=== PATIENT | male | born 1980 ===

== ENCOUNTER 2016-07-22 20:00 | Emergency (ER) | payer MEDICAID, OTHER ==
[2016-07-22 20:01] VITALS: BMI 25.7
[2016-07-22] MEDS ORDERED: Sodium Chloride 0.9% 1,000 ML IV ONE (20:52)
[2016-07-22] MEDS ORDERED: Albuterol-Ipratrop 3 mg / 0.5 (3 ml) UD IH STA (20:53)
[2016-07-22] MEDS ORDERED: Sodium Chloride 0.9% 1,000 ML ONE (21:03)
[2016-07-22 21:32] LABS: BASO % 0.6 % (0.0-2.0); EOS # 0.1 K/uL (0.0-0.7); EOS % 2.2 % (0.0-4.0); HEMATOCRIT 42.2 % (35.0-51.0); LYMPH # 2.2 K/uL (1.0-4.3); LYMPH % 37.5 % (20.0-40.0); MEAN CORPUSCULAR HEMOGLOBIN 30.6 pg (27.0-31.0); MEAN CORPUSCULAR HGB CONC 33.3 g/dL (33.0-37.0); MEAN PLATELET VOLUME 7.2 fL (7.2-11.7); MONO # 0.7 K/uL (0.0-0.8); NRBC % 0.1 % (0.0-2.0); RED CELL DISTRIBUTION WIDTH 13.6 % (11.5-14.5); WHITE BLOOD COUNT 5.9 K/uL (4.8-10.8)
[2016-07-22 21:38] LABS: CHLORIDE 92 mmol/L (98-107); SODIUM 140 mmol/L (132-148)
[2016-07-22 21:39] LABS: POTASSIUM 3.3 mmol/L (3.6-5.2)
[2016-07-22 21:41] LABS: ALB/GLOB RATIO 1.3 (1.0-2.1); ALKALINE PHOSPHATASE 77 U/L (38-126); ALT/SGPT 23 U/L (21-72); AST/SGOT 36 U/L (17-59); BILIRUBIN,TOTAL 0.3 mg/dL (0.2-1.3); BLOOD UREA NITROGEN 5 mg/dL (9-20); CALCIUM 9.1 mg/dl (8.6-10.4); CARBON DIOXIDE 28 mmol/L (22-30); GFR AFRICAN-AMERICAN > 60; GLUCOSE,RANDOM 89 mg/dL (75-110); TOTAL PROTEIN 8.1 g/dL (6.3-8.3)
[2016-07-22 21:42] LABS: ALCOHOL SERUM 264 mg/dl (0-10)
[2016-07-22] MEDS ORDERED: Albuterol-Ipratrop 3 mg / 0.5 (3 ml) UD ONE (21:51)
[2016-07-22 22:39] VITALS: RESP 16; TEMP 97.7
[2016-07-22] MEDS ORDERED: Potassium Chloride 20 mEq ER Tab PO STA (23:57)
--- NOTE | 2016-07-22 23:58 | C.PDOC ---
Time Seen by Provider: 07/22/16 20:45 Chief Complaint (Nursing): Shortness Of Breath Past Medical History Vital Signs: Last Vital Signs Temp 97.7 F 07/22/16 22:39 Pulse 86 07/22/16 22:39 Resp 16 07/22/16 22:39 BP 107/68 07/22/16 22:39 Pulse Ox 94 L 07/22/16 22:39 - Medical History PMH: Anxiety, Depression, Seizures (ETOH related) Denies: Diabetes, Hepatitis, HIV, HTN, Pericarditis (atrial septal defect), Chronic Kidney Disease, Sexually Transmitted Disease Surgical History: CABG, Pacemaker - [facility] Procedures ALCOHOL DETOXIFICATION (06/14/14) ALCOHOLISM COUNSELLING (07/22/13) DETOXIFICATION SERVICES FOR SUBSTANCE ABUSE TREATMENT (06/19/16) INDIVIDUAL PSYCHOTHERAPY, SUPPORTIVE (06/19/16) INJECT/INFUSE NEC (06/04/14) INTRODUCTION OF SERUM/TOX/VACCINE INTO MUSCLE, PERC APPROACH (10/20/15) OTHER ENDOSCOPY OF SM INTEST (06/29/13) PSYCHIA INTERV/EVAL NEC (08/06/13) VACCINATION NEC (07/22/13) Family History: States: Unknown Family Hx - Social History Hx Tobacco Use: Yes Hx Alcohol Use: Yes (VODKA) Hx Substance Use: Yes - Immunization History Hx Tetanus Toxoid Vaccination: No Hx Influenza Vaccination: Yes Hx Pneumococcal Vaccination: Yes ED Course And Treatment - Laboratory Results Result Diagrams: 07/22/16 21:26 07/22/16 21:26 O2 Sat by Pulse Oximetry: 94
--- NOTE | 2016-07-23 00:01 | C.PDOC ---
Time Seen by Provider: 07/22/16 20:45 Chief Complaint (Nursing): Cough, Cold, Congestion History Per: Patient Onset/Duration Of Symptoms: Days (few) Current Symptoms Are (Timing): Still Present Associated Symptoms: Cough, Sputum Severity: Moderate Additional History Per: Prior Records Past Medical History Reviewed: Historical Data, Nursing Documentation, Vital Signs Vital Signs: Last Vital Signs Temp 97.7 F 07/22/16 22:39 Pulse 86 07/22/16 22:39 Resp 16 07/22/16 22:39 BP 107/68 07/22/16 22:39 Pulse Ox 94 L 07/22/16 22:39 - Medical History PMH: Anxiety, Depression, Seizures (ETOH related) Other Surgeries: Repair of atrial septal defect - [facility] Procedures ALCOHOL DETOXIFICATION (06/14/14) ALCOHOLISM COUNSELLING (07/22/13) DETOXIFICATION SERVICES FOR SUBSTANCE ABUSE TREATMENT (06/19/16) INDIVIDUAL PSYCHOTHERAPY, SUPPORTIVE (06/19/16) INJECT/INFUSE NEC (06/04/14) INTRODUCTION OF SERUM/TOX/VACCINE INTO MUSCLE, PERC APPROACH (10/20/15) OTHER ENDOSCOPY OF SM INTEST (06/29/13) PSYCHIA INTERV/EVAL NEC (08/06/13) VACCINATION NEC (07/22/13) Family History: States: Unknown Family Hx - Social History Hx Tobacco Use: Yes Hx Alcohol Use: Yes (VODKA) Hx Substance Use: Yes (IVDU) - Immunization History Hx Tetanus Toxoid Vaccination: No Hx Influenza Vaccination: Yes Hx Pneumococcal Vaccination: Yes Review Of Systems Except As Marked, All Systems Reviewed And Found Negative. Constitutional: Negative for: Fever Cardiovascular: Negative for: Chest Pain Respiratory: Positive for: Cough, Sputum. Negative for: Hemoptysis Gastrointestinal: Negative for: Abdominal Pain Genitourinary: Negative for: Dysuria Musculoskeletal: Negative for: Neck Pain, Back Pain Skin: Positive for: Lesions Neurological: Negative for: Weakness, Numbness, Seizures, Altered Mental Status Physical Exam - Physical Exam Appears: Non-toxic, No Acute Distress Skin: Warm, Dry Head: Atraumatic, Normacephalic Eye(s): bilateral: PERRL, EOMI Neck: Normal ROM, Supple Cardiovascular: Rhythm Regular Respiratory: No Accessory Muscle Use, Rhonchi Gastrointestinal/Abdominal: Soft, No Tenderness Back: No CVA Tenderness Extremity: Normal ROM, No Pedal Edema, No Calf Tenderness, Capillary Refill (wnl ), Other (track hopkins on arms with some small areas of erythema, no fluctuance. ) Pulses: Left Radial: Normal, Right Radial: Normal Neurological/Psych: Oriented x3, Normal Motor, Normal Sensation ED Course And Treatment - Laboratory Results Result Diagrams: 07/22/16 21:26 07/22/16 21:26 O2 Sat by Pulse Oximetry: 95 Pulse Ox Interpretation: Normal - Radiology CXR: Interpreted by Me, Viewed By Me CXR Interpretation: Yes: No Acute Disease Progress Note: Lungs clear after 1 Duoneb. Reassessment Condition: Improved Progress - Interventions Interventions:: Observation, Intravenous fluid - Medications Administered Inhaled nebulized: Anticholinergic, Beta-2 agonist - Data Reviewed Data Reviewed: Lab, Diagnostic imaging, Old records - Patient Status Patient status: Mostly improved - Continuity of Care Discussed patient case with:: Patient, ED Nurse - Patient Plan Patient Plan: Discharge, F/U with PCP Disposition Counseled Patient/Family Regarding: Studies Performed, Diagnosis, Need For Followup, Rx Given, Smoking Cessation - Disposition Disposition: HOME/ ROUTINE Disposition Time: 00:03 Condition: IMPROVED Additional Instructions: Stop smoking, drinking alcohol, and using illicit drugs. Follow up with your doctor within 2 days. Return to the ER if you develop fever, shortness of breath , worsening of symptoms or if you have any other concerns. Prescriptions: Doxycycline Hyclate 100 mg PO Q12 #14 tab Albuterol HFA [Ventolin HFA 90 mcg/actuation (8 g)] 2 puff IH Q4 PRN #1 unit PRN Reason: Wheezing Instructions: Acute Bronchitis (ED), Polysubstance Abuse (ED) - Clinical Impression Clinical Impression: Bronchitis, acute, Polysubstance abuse
[2016-07-23] MEDS ORDERED: Potassium Chloride 20 mEq ER Tab PO ONE (00:09)
[2016-07-23 00:32] VITALS: BP 110/75; PULSE 85; O2SAT 99
--- NOTE | 2016-07-23 08:30 | RAD ---
PROCEDURE: CHEST RADIOGRAPH, 1 VIEW HISTORY: SOB, cough, h/o ASD repair. IVDU. COMPARISON: 01/05/2016 FINDINGS: LUNGS: Mild venous congestion. PLEURA: No pneumothorax or pleural fluid seen. CARDIOVASCULAR: Normal. OSSEOUS STRUCTURES: No significant abnormalities. VISUALIZED UPPER ABDOMEN: Normal. OTHER FINDINGS: None. IMPRESSION: Mild venous congestion.
== END 2016-07-23 00:31 | disposition home or self-care (01) ==
LOC: C.ER 20:00
DX: J20.9 Acute bronchitis, unspecified (principal); F19.10 Other psychoactive substance abuse, uncomplicated; E87.6 Hypokalemia
CPT/HCPCS: 71010; 80053; 80320; 83735; 85025; 87040; 87804; 94640; 99284; J7040

== ENCOUNTER 2016-10-08 17:03 | Inpatient (IN) | payer OTHER ==
[2016-10-08 17:03] VITALS: BMI 25.7
--- NOTE | 2016-10-08 17:52 | C.PDOC ---
History Of Present Illness 36-year-old male, presents to the emergency department with complaints of foot cellulitis and abscesses to B/L feet. Patient discharged on 09/18 for right foot cellulitis and heroin abuse. Patient discharged on Clindamycin. States he didn' t fill it and was taking "sisters leftover unknown abx." Patient notes that he popped abscess on right foot, and has mild relief since. He is complaining of associated subjective fever and chills. Patient admits to shooting up in foot, but thinks he has not done it in two weeks. Last Heroin use was two days ago. Patient is also complaining of a non-productive cough with post-tussive vomiting. Patient is a smoker. No Hx of Asthma. Time Seen by Provider: 10/08/16 17:35 Chief Complaint (Nursing): Abnormal Skin Integrity History Per: Patient History/Exam Limitations: no limitations Onset/Duration Of Symptoms: Days Current Symptoms Are (Timing): Still Present Past Medical History Reviewed: Historical Data, Nursing Documentation, Vital Signs Vital Signs: Last Vital Signs Temp 98.2 F 10/08/16 17:12 Pulse 82 10/08/16 17:12 Resp 18 10/08/16 17:12 BP 105/68 10/08/16 17:12 Pulse Ox 100 10/08/16 18:44 - Medical History PMH: Anxiety, Bipolar Disorder, Depression, Seizures (ETOH related) Denies: HIV, HTN, Pericarditis (atrial septal defect), Chronic Kidney Disease , Sexually Transmitted Disease Surgical History: CABG - [facility] Procedures ALCOHOL DETOXIFICATION (06/14/14) ALCOHOLISM COUNSELLING (07/22/13) DETOXIFICATION SERVICES FOR SUBSTANCE ABUSE TREATMENT (06/19/16) INDIVIDUAL PSYCHOTHERAPY, SUPPORTIVE (06/19/16) INJECT/INFUSE NEC (06/04/14) INTRODUCTION OF SERUM/TOX/VACCINE INTO MUSCLE, PERC APPROACH (10/20/15) OTHER ENDOSCOPY OF SM INTEST (06/29/13) PSYCHIA INTERV/EVAL NEC (08/06/13) VACCINATION NEC (07/22/13) Family History: States: No Known Family Hx - Social History Hx Tobacco Use: Yes Hx Alcohol Use: Yes (VODKA) Hx Substance Use: Yes (IVDU) - Immunization History Hx Tetanus Toxoid Vaccination: No Hx Influenza Vaccination: Yes Hx Pneumococcal Vaccination: Yes Review Of Systems Except As Marked, All Systems Reviewed And Found Negative. Constitutional: Positive for: Fever, Chills Cardiovascular: Negative for: Chest Pain Respiratory: Positive for: Cough Gastrointestinal: Positive for: Vomiting Musculoskeletal: Positive for: Foot Pain Neurological: Negative for: Weakness, Numbness Physical Exam - Physical Exam Appears: Non-toxic, No Acute Distress Skin: Warm, Dry, Other (Drained abscess, right lower ext) Eye(s): bilateral: Normal Inspection, PERRL Nose: Normal Oral Mucosa: Moist Lips: Normal Appearing Neck: Normal ROM Cardiovascular: Rhythm Regular, No Murmur Respiratory: Normal Breath Sounds, No Accessory Muscle Use Gastrointestinal/Abdominal: Soft, No Tenderness, No Guarding, No Rebound Extremity: Other (There is an abscess over the right first MT joint. No cellulitis. Left foot: Celulitis to the top of to mid calf, that is extended to distal anterior leg. There is a large abscess over leg and medial malleolus) Neurological/Psych: Oriented x3, Normal Speech ED Course And Treatment O2 Sat by Pulse Oximetry: 100 - Physician Consult Information Time Consulting Physician Contacted: 18:07 Physician Contacted: Darshan Loza Jr. Outcome Of Conversation: ADMITTED PT FROM LAST TIME. AGREES TO REACCEPT FOR ADMISSION. CONSULT DR JOSÉ Progress - Re-Evaluation Re-evaluation Note: 10/08/16 DR TOTH NOTIFIED Disposition Counseled Patient/Family Regarding: Studies Performed, Diagnosis - Disposition Disposition: HOSPITALIZED Disposition Time: 18:08 Condition: STABLE - POA Present On Arrival: None - Clinical Impression Clinical Impression: Cellulitis, Foot abscess, Narcotic abuse - PA / ORTHODONTIC ASSISTANT / Resident Statement MD/DO has reviewed & agrees with the documentation as recorded. - Scribe Statement The provider has reviewed the documentation as recorded by the Scribe (Gwyn Mccall) All medical record entries made by the Scribe were at my direction and personally dictated by me. I have reviewed the chart and agree that the record accurately reflects my personal performance of the history, physical exam, medical decision making, and the department course for this patient. I have also personally directed, reviewed, and agree with the discharge instructions and disposition. Decision To Admit - Pt Status Changed To: Hospital Disposition Of: Inpatient - Admit Certification Admit to Inpatient:: After my assessment, the patient will require hospitalization for at least two midnights. This is because of the severity of symptoms shown, intensity of services needed, and/or the medical risk in this patient being treated as an outpatient. - InPatient: Physician Admission Certification: I certify that this patient requires 2 or more midnights of care for the following reason:: SEE NOTE - . Bed Request Type: Regular Admitting Physician: Darshan Loza Jr. Patient Diagnosis: Cellulitis, Foot abscess, Narcotic abuse
[2016-10-08] MEDS ORDERED: ceFAZolin IV 1 gm in Dextrose 1 GM/50 ML BAG IVPB STA (18:14)
[2016-10-08] MEDS ORDERED: Vancomycin 1 GM 1 GM/250 ML BAG IV ONE (18:30)
--- NOTE | 2016-10-08 18:36 | RAD ---
PROCEDURE: CHEST RADIOGRAPH, 1 VIEW HISTORY: COUGH HO IVDA COMPARISON: 07/22/2016 FINDINGS: LUNGS: Clear. PLEURA: No pneumothorax or pleural fluid seen. CARDIOVASCULAR: Normal. OSSEOUS STRUCTURES: No significant abnormalities. VISUALIZED UPPER ABDOMEN: Normal. OTHER FINDINGS: None. IMPRESSION: No active disease.
[2016-10-08 19:05] LABS: BASO # 0.1 K/uL (0.0-0.2); BASO % 0.4 % (0.0-2.0); EOS # 0.3 K/uL (0.0-0.7); EOS % 1.9 % (0.0-4.0); HEMATOCRIT 42.8 % (35.0-51.0); LYMPH # 1.7 K/uL (1.0-4.3); LYMPH % 10.6 % (20.0-40.0); MEAN CORPUSCULAR HEMOGLOBIN 30.3 pg (27.0-31.0); MEAN CORPUSCULAR HGB CONC 33.9 g/dL (33.0-37.0); MEAN PLATELET VOLUME 7.2 fL (7.2-11.7); MONO % 6.4 % (0.0-10.0); RED CELL DISTRIBUTION WIDTH 12.8 % (11.5-14.5)
[2016-10-08 19:08] LABS: MEAN CELL VOLUME 89.4 fL (80.0-94.0); WHITE BLOOD COUNT 15.9 K/uL (4.8-10.8)
[2016-10-08 19:16] LABS: CHLORIDE 92 mmol/L (98-107); POTASSIUM 2.8 mmol/L (3.6-5.2); SODIUM 137 mmol/L (132-148)
[2016-10-08 19:19] LABS: BLOOD UREA NITROGEN 13 mg/dL (9-20); CALCIUM 9.9 mg/dl (8.6-10.4); CARBON DIOXIDE 31 mmol/L (22-30); GFR AFRICAN-AMERICAN > 60; GLUCOSE,RANDOM 108 mg/dL (75-110)
[2016-10-08] MEDS ORDERED: ceFAZolin 1 gm FROZEN Premix 1 GM/50 ML ML IVPB ONE (19:37)
[2016-10-08] MEDS ORDERED: Vancomycin 1 GM 1 GM/250 ML BAG IVPB ONE (20:20)
[2016-10-08] MEDS ORDERED: Thiamine 100 mg/ml Inj IV ONE (21:12)
[2016-10-08] MEDS ORDERED: Thiamine 100 mg/ml Inj ONE (21:46)
[2016-10-09] MEDS ORDERED: Potassium Chloride 20 mEq ER Tab PO STA (03:55)
[2016-10-09] MEDS ORDERED: Potassium Chloride 20 mEq ER Tab PO ONE ×2 (04:57→10:00)
[2016-10-09] MEDS: Vancomycin 1 gm/NS 200 ml 1 GM/200 ML BAG IVPB SCH ×2 (06:11→17:30)
[2016-10-09 06:32] LABS: BASO # 0.1 K/uL (0.0-0.2); BASO % 0.6 % (0.0-2.0); EOS # 0.4 K/uL (0.0-0.7); EOS % 3.3 % (0.0-4.0); HEMATOCRIT 38.8 % (35.0-51.0); LYMPH # 1.6 K/uL (1.0-4.3); LYMPH % 12.3 % (20.0-40.0); MEAN CELL VOLUME 90.5 fL (80.0-94.0); MEAN CORPUSCULAR HEMOGLOBIN 30.4 pg (27.0-31.0); MEAN CORPUSCULAR HGB CONC 33.6 g/dL (33.0-37.0); MEAN PLATELET VOLUME 7.1 fL (7.2-11.7); MONO # 1.2 K/uL (0.0-0.8); MONO % 8.7 % (0.0-10.0); RED CELL DISTRIBUTION WIDTH 12.6 % (11.5-14.5); WHITE BLOOD COUNT 13.2 K/uL (4.8-10.8)
[2016-10-09 06:40] LABS: CHLORIDE 95 mmol/L (98-107); SODIUM 135 mmol/L (132-148)
[2016-10-09 06:42] LABS: BILIRUBIN,TOTAL 0.6 mg/dL (0.2-1.3); GFR AFRICAN-AMERICAN > 60
[2016-10-09 06:43] LABS: ALB/GLOB RATIO 0.9 (1.0-2.1); ALKALINE PHOSPHATASE 86 U/L (38-126); ALT/SGPT 22 U/L (21-72); AST/SGOT 16 U/L (17-59); BLOOD UREA NITROGEN 15 mg/dL (9-20); CARBON DIOXIDE 28 mmol/L (22-30); GLUCOSE,RANDOM 116 mg/dL (75-110); PHOSPHOROUS 4.2 mg/dL (2.5-4.5); TOTAL PROTEIN 7.1 g/dL (6.3-8.3)
[2016-10-09 06:44] LABS: MAGNESIUM 1.9 mg/dL (1.6-2.3)
[2016-10-09 06:45] LABS: POTASSIUM 3.2 mmol/L (3.6-5.2)
[2016-10-09 06:47] LABS: INR 1.2
--- NOTE | 2016-10-09 07:15 | CP.PCM.HP ---
History of Present Illness - History of Present Illness History of Present Illness: CC: "Foot wounds" HPI: 35 year old male PMH significant for seizures (noncompliant), 12 yr hx + Cocaine abuse - last use 2 days prior to admission (IV), and last drink of vodka 2 days prior states that he has 3 wounds on his feet that started 3-4 days ago. He states these wounds are very tender and swollen. They are draining blood and pus like material. He states these wounds are at the same place that he was injecting IV drugs. He denied fever/chills. He denies past history of endocarditis. He stated that he felt a little weak but denied all other complaints. PMH: seizures from alcohol withdrawal, polysubstance abuse including cocaine, heroin, marijuana, ETOH, DTs in the past 4-5 years ago at [place], bipolar? PSH: denies FH: mother had a stoke and unknown type of cancer Meds: Trazodone 200 mg PO HS, ZOloft 100mg PO daily (ran out), Seroquel 200mg PO HS, Seroquel 50mg PO daily, buys other drugs on the street when he runs out ALLERGIES: NKDA SH: polysubstance abuse including cocaine (last use 2 days ago), heroin (last use 2 days ago) IV drug injection, marijuana, ETOH - 2-3 pints of Vodka daily 12 years, tobacco 1 ppd 12 years. Will sometimes buy Xanax off of the street Present on Admission - Present on Admission Any Indicators Present on Admission: No Review of Systems - Constitutional Constitutional: absent: Chills, Fever - EENT Eyes: absent: Blurred Vision, Change in Vision - Cardiovascular Cardiovascular: absent: Chest Pain, Chest Pain at Rest, Palpitations, Pedal Edema, Syncope - Respiratory Respiratory: absent: Cough, Dyspnea, Dyspnea on Exertion - Gastrointestinal Gastrointestinal: absent: Abdominal Pain, Constipation, Cramping, Diarrhea, Nausea, Vomiting - Genitourinary Genitourinary: absent: Change in Urinary Stream, Difficulty Urinating - Musculoskeletal Additional comments: Foot wounds - Neurological Neurological: absent: Tingling, Weakness Past Patient History - Infectious Disease Hx of Infectious Diseases: None - Past Medical History & Family History Past Medical History?: Yes - Past Social History Smoking Status: Light Smoker < 10 Cigarettes Daily - CARDIAC Hx Hypertension: No - PULMONARY Hx Tuberculosis: No - NEUROLOGICAL Hx Seizures: Yes (ETOH related) - HEENT Hx HEENT Problems: No - RENAL Hx Chronic Kidney Disease: No - ENDOCRINE/METABOLIC Hx Endocrine Disorders: No - HEMATOLOGICAL/ONCOLOGICAL Hx Human Immunodeficiency Virus (HIV): No - INTEGUMENTARY Hx Dermatological Problems: No - MUSCULOSKELETAL/RHEUMATOLOGICAL Hx Falls: No - GASTROINTESTINAL Hx Gastrointestinal Disorders: No - GENITOURINARY/GYNECOLOGICAL Hx Sexually Transmitted Disorders: No - PSYCHIATRIC Hx Anxiety: Yes Hx Bipolar Disorder: Yes Hx Depression: Yes Hx Substance Use: Yes (IVDU) - SURGICAL HISTORY Hx Coronary Artery Bypass Graft: Yes - ANESTHESIA Hx Anesthesia: Yes Hx Anesthesia Reactions: No Meds Allergies/Adverse Reactions: Allergies Allergy/AdvReac Type Severity Reaction Status Date / Time No Known Allergies Allergy Verified 10/08/16 17:16 Physical Exam - Constitutional Appears: Non-toxic, No Acute Distress, Unkempt - Head Exam Head Exam: ATRAUMATIC, NORMAL INSPECTION - Eye Exam Eye Exam: EOMI, Normal appearance, PERRL Pupil Exam: NORMAL ACCOMODATION - ENT Exam ENT Exam: Mucous Membranes Dry - Respiratory Exam Respiratory Exam: Clear to Auscultation Bilateral, NORMAL BREATHING PATTERN. absent: Accessory Muscle Use, Rales, Rhonchi, Wheezes, Respiratory Distress - Cardiovascular Exam Cardiovascular Exam: REGULAR RHYTHM, +S1, +S2 - GI/Abdominal Exam GI & Abdominal Exam: Normal Bowel Sounds, Soft. absent: Distended, Firm, Guarding, Tenderness - Extremities Exam Additional comments: Erythema to both feet. Wound at base of great toe on R foot, coverd in scab with dried blood. Raised abscess/wound on L foot draining dried blood. Tender to palpation, edema and erythema. ROM in tact but decreased due to pain. Sensation in pain, pulses present Results - Vital Signs Recent Vital Signs: Last Vital Signs Temp 98.4 F 10/09/16 06:12 Pulse 90 10/09/16 06:12 Resp 16 10/09/16 06:12 BP 101/69 10/09/16 06:12 Pulse Ox 97 10/09/16 06:12 - Labs Result Diagrams: 10/09/16 06:29 10/09/16 06:29 Labs: Laboratory Results - last 24 hr 10/08/16 10/08/16 10/09/16 18:58 18:58 06:29 WBC 15.9 H D RBC 4.78 Hgb 14.5 D Hct 42.8 MCV 89.4 D MCH 30.3 MCHC 33.9 RDW 12.8 Plt Count 441 H D MPV 7.2 Neut % (Auto) 80.7 H Lymph % (Auto) 10.6 L [place] % (Auto) 6.4 Eos % (Auto) 1.9 Baso % (Auto) 0.4 Neut # 12.8 H Lymph # 1.7 [place] # 1.0 H Eos # 0.3 Baso # 0.1 PT 12.9 H INR 1.2 APTT 30 Sodium 137 Potassium 2.8 L Chloride 92 L Carbon Dioxide 31 H Anion Gap 17 BUN 13 Creatinine 0.9 Est GFR ( Amer) > 60 Est GFR (Non-Af Amer) > 60 Random Glucose 108 Calcium 9.9 Phosphorus Magnesium Total Bilirubin AST ALT Alkaline Phosphatase Total Protein Albumin Globulin Albumin/Globulin Ratio 10/09/16 10/09/16 06:29 06:29 WBC 13.2 H RBC 4.29 L Hgb 13.0 Hct 38.8 MCV 90.5 MCH 30.4 MCHC 33.6 RDW 12.6 Plt Count 375 MPV 7.1 L Neut % (Auto) 75.1 H Lymph % (Auto) 12.3 L [place] % (Auto) 8.7 Eos % (Auto) 3.3 Baso % (Auto) 0.6 Neut # 9.9 H Lymph # 1.6 [place] # 1.2 H Eos # 0.4 Baso # 0.1 PT INR APTT Sodium 135 Potassium 3.2 L Chloride 95 L Carbon Dioxide 28 Anion Gap 15 BUN 15 Creatinine 0.9 Est GFR ( Amer) > 60 Est GFR (Non-Af Amer) > 60 Random Glucose 116 H Calcium 9.0 Phosphorus 4.2 Magnesium 1.9 Total Bilirubin 0.6 AST 16 L D ALT 22 Alkaline Phosphatase 86 Total Protein 7.1 Albumin 3.4 L Globulin 3.7 Albumin/Globulin Ratio 0.9 L Assessment & Plan - Assessment and Plan (Free Text) Assessment: Multiple foot wounds with cellulitis Likely abscess Surg consulted, Dr. Peck - help appreciated f/u foot Xray Vanc 1gm IVPB Q12 Rocephin 1 gm IV daily f/u EKG/chest xray f/u echo to rule out endocarditis - f/u blood cultures Polysubstance abuse f/u UDS Psych consulted, help appreciated Alcohol Use disorder CIWA seizure/aspiration precautions MV/thiamine/folic acid MOnitor for signs of withdrawal Ativan taper Bipolar disorder? Psych consulted help appreciated Seroquel 200mg PO HS Trazodone 100mg PO HS NPO for possible OR today Pepcid 10mg PO BID
--- NOTE | 2016-10-09 11:05 | RAD ---
PROCEDURE: Bilateral Feet Radiographs. HISTORY: CELLULITIS ABSCESS RO FB HO IVDA COMPARISON: None. FINDINGS: BONES: Right Foot: Normal. No fracture. Left Foot: Normal. No fracture. JOINTS: Right Foot: Normal. No osteoarthritis. Left Foot: Normal. No osteoarthritis. SOFT TISSUES: Right Foot: Normal. Left Foot: There is soft tissue swelling in the medial hindfoot. OTHER FINDINGS: No radiopaque foreign body. . IMPRESSION: No radiopaque foreign body. No acute fracture or bone destruction.
--- NOTE | 2016-10-09 11:29 | CARD ---
APPROVED REPORT EKG Measurement Heart [id number] <Conclusion> Normal sinus rhythm Prolonged QT Abnormal ECG
[2016-10-09] MEDS: Multiple Vitamins Tab PO SCH (11:30)
--- NOTE | 2016-10-09 14:39 | CP.PCM.PN ---
<Michael Guillen - Last Filed: 10/09/16 16:37> Subjective - Date & Time of Evaluation Date of Evaluation: 10/09/16 Time of Evaluation: 09:15 - Subjective Subjective: Patient was examined at bedside this morning. Patient is not in acute distress. Patient states that he's feeling withdrawal symptoms from his polysubstance abuse. He said he feels sick and slightly anxious. Patient rates the pain in his feet a 6/10. Patient denies chest pain, shortness of breath, nausea, vomiting, diarrhea, bleeding. Objective - Vital Signs/Intake and Output Vital Signs (last 24 hours): Temp Pulse Resp BP Pulse Ox 98.2 F 76 20 109/72 99 10/09/16 08:09 10/09/16 08:09 10/09/16 08:09 10/09/16 08:09 10/09/16 08:09 Intake and Output: 10/09/16 10/09/16 06:59 18:59 Intake Total 280 Balance 280 - Medications Medications: Current Medications Famotidine (Pepcid) 20 mg PO BID [facility] Last Admin: 10/09/16 11:30 Dose: 20 mg Heparin Sodium (Porcine) (Heparin) 5,000 units SC Q12 [facility] Folic Acid 1 mg/ Sodium (Chloride) 100.2 mls @ 60 mls/hr IV DAILY [facility] Last Admin: 10/09/16 11:30 Dose: 60 mls/hr Vancomycin/Sodium Chloride (Vancocin) 1 gm in 200 mls @ 133 mls/hr IVPB Q12H [facility] Stop: 10/14/16 06:01 Last Admin: 10/09/16 06:11 Dose: 133 mls/hr Ceftriaxone Sodium 1 gm/ (Sodium Chloride) 100 mls @ 100 mls/hr IVPB DAILY [facility] Ketorolac Tromethamine (Toradol) 15 mg IVP Q6 PRN PRN Reason: Pain, severe (8-10) Last Admin: 10/09/16 06:18 Dose: 15 mg Lorazepam (Ativan) 1 mg IVP Q6H PRN PRN Reason: Anxiety Lorazepam (Ativan) 2 mg PO Q4 [facility] PRN Reason: Taper Stop: 10/14/16 07:29 Last Admin: 10/09/16 11:29 Dose: 2 mg Multivitamins (Hexavitamin) 1 tab PO DAILY [facility] Last Admin: 10/09/16 11:30 Dose: 1 tab Quetiapine Fumarate (Seroquel) 200 mg PO HS [facility] Last Admin: 10/08/16 23:08 Dose: 200 mg Sertraline HCl (Zoloft) 100 mg PO DAILY [facility] Last Admin: 10/09/16 11:29 Dose: 100 mg Trazodone HCl (Desyrel) 100 mg PO HS [facility] - Labs Labs: 10/09/16 06:29 10/09/16 06:29 PT 12.9 SECONDS (9.7-12.2) H 10/09/16 06:29 INR 1.2 10/09/16 06:29 APTT 30 SECONDS (21-34) 10/09/16 06:29 - Constitutional Appears: Non-toxic, No Acute Distress - Head Exam Head Exam: NORMAL INSPECTION - Eye Exam Eye Exam: EOMI, Normal appearance, PERRL Pupil Exam: NORMAL ACCOMODATION, PERRL - ENT Exam ENT Exam: Mucous Membranes Moist - Neck Exam Neck Exam: Full ROM - Respiratory Exam Respiratory Exam: Clear to Ausculation Bilateral, NORMAL BREATHING PATTERN - Cardiovascular Exam Cardiovascular Exam: REGULAR RHYTHM, +S1, +S2 - GI/Abdominal Exam GI & Abdominal Exam: Soft, Normal Bowel Sounds - Rectal Exam Rectal Exam: Deferred - Extremities Exam Extremities Exam: Tenderness. absent: Calf Tenderness Additional comments: Erythema to both feet. Wound at base of great toe on R foot, covered in scab with dried blood. Raised abscess/wound on L foot draining dried blood. Tender to palpation, edema and erythema. ROM in tact but decreased due to pain. Sensation to pain, pulses present - Neurological Exam Neurological Exam: Alert, Awake, Oriented x3 - Psychiatric Exam Psychiatric exam: Anxious, Normal Affect - Skin Skin Exam: Abrasion, Normal Color, Warm Assessment and Plan - Assessment and Plan (Free Text) Assessment: Multiple foot wounds with cellulitis Likely abscess Vanc 1gm IVPB Q12 Rocephin 1 gm IV daily Surg consulted, Dr. Peck - OR likely tomorrow NPO after midnight foot Xray [10/08]: No acute fracture or bone destruction EKG [10/08]: normal sinus rhythm, prolonged qt chest xray [10/08]: no active disease f/u echo to rule out endocarditis - f/u blood cultures dilaudid 1mg IV q6 prn for pain Polysubstance abuse f/u UDS Psych consulted, help appreciated Alcohol Use disorder CIWA score = 7 seizure/aspiration precautions MV/thiamine/folic acid Monitor for signs of withdrawal, Hx of withdrawal seizures Ativan taper Bipolar disorder? Psych consulted help appreciated Seroquel 200mg PO HS Trazodone 100mg PO HS Prophylaxis Pepcid 10mg PO BID Heparin 5000u sc q12 <Darshan Loza Jr. - Last Filed: 10/22/16 10:04> Objective - Vital Signs/Intake and Output Vital Signs (last 24 hours): Temp Pulse Resp BP Pulse Ox 97.5 F L 100 H 20 105/71 97 10/17/16 15:00 10/17/16 15:00 10/17/16 15:00 10/17/16 15:00 10/17/16 15:00 - Labs Labs: 10/17/16 07:51 10/17/16 07:51 PT 11.1 SECONDS (9.7-12.2) 10/17/16 07:51 INR 1.0 10/17/16 07:51 APTT 31 SECONDS (21-34) 10/17/16 07:51 Attending/Attestation - Attestation I have personally seen and examined this patient.: Yes I have fully participated in the care of the patient.: Yes I have reviewed all pertinent clinical information, including history, physical exam and plan: Yes Notes (Text): 10/22/16 10:04 Agree with resident note and findings
--- NOTE | 2016-10-09 15:50 | PCM.PSYCH ---
Initial Psychiatric Evaluation - Initial Psychiatric Evaluation Type of Admission: Voluntary Legal Status: Capacity History of Present Illness and Precipitating Events: Patient is a 36 y/o HM, single and homeless came to the [facility] ED with wounds on his feet. Today patient was consulted because of history of abusing alcohol and heroin. 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 Patient was discharged from [facility] almost 3 months ago. Patient states that soon after discharge from the hospital he stopped taking medications and he relapsed on alcohol and heroin. He reports of drinking 1-2 pints of vodka on a daily basis along with 5- 7 bags of heroin. Almost 3 days ago 1 pint of alcohol and 4 bags of heroin and started having withdrawal symptoms. Yesterday his foor started hurting because of injecting heroin, so he came to the to get help. Pt reports reports withdrawal symptoms including anxiety, back pain and joint pains, nausea and sweating. He reports anxiety, irritability and reports auditory hallucinations non command type. He also reports visual hallucinations , seeing shadows and persecutory delusions. However he denies any suicidal ideation or homicidal ideation. PMHx: Seizures Current Medications: Active Medications Generic Name Dose Route Start Last Admin Trade Name Freq PRN Reason Stop Dose Admin Famotidine 20 mg 10/09/16 10:00 10/09/16 11:30 Pepcid PO 20 mg BID GLADYS Administration Heparin Sodium (Porcine) 5,000 units 10/09/16 22:00 Heparin SC Q12 GLADYS Folic Acid 1 mg/ Sodium 100.2 mls @ 60 mls/hr 10/09/16 10:00 10/09/16 11:30 Chloride IV 60 mls/hr DAILY GLADYS Administration Vancomycin/Sodium Chloride 1 gm in 200 mls @ 133 mls/hr 10/09/16 06:00 06:11 Vancocin IVPB 10/14/16 06:01 133 mls/hr Q12H GLAD[facility] Administration Ceftriaxone Sodium 1 gm/ 100 mls @ 100 mls/hr 10/09/16 18:00 Sodium Chloride IVPB DAILY GLADYS Ketorolac Tromethamine 15 mg 10/08/16 21:08 10/09/16 06:18 Toradol IVP 15 mg Q6 PRN Administration Pain, severe (8-10) Lorazepam 1 mg 10/09/16 07:20 Ativan IVP Q6H PRN Anxiety Lorazepam 2 mg 10/09/16 07:30 10/09/16 11:29 Ativan PO 10/14/16 07:29 2 mg Q4 GLADYS Administration Taper Multivitamins 1 tab 10/09/16 10:00 10/09/16 11:30 Hexavitamin PO 1 tab DAILY GLADYS Administration Quetiapine Fumarate 200 mg 10/08/16 22:00 10/08/16 23:08 Seroquel PO 200 mg HS GLAD[facility] Administration Sertraline HCl 100 mg 10/09/16 10:00 10/09/16 11:29 Zoloft PO 100 mg DAILY GLAD[facility] Administration Trazodone HCl 100 mg 10/09/16 22:00 Desyrel PO HS GL[facility] Past Psychiatric History - Past Psychiatric History Previous Treatment History: Inpatient Pertinent Medical Hx (Current Medical&Sleep Prob, Allergies): Allergies Allergy/AdvReac Type Severity Reaction Status Date / Time No Known Allergies Allergy Verified 10/08/16 17:16 QUEtiapine [SEROquel] 200 mg PO HS 10/08/16 Sertraline [Zoloft] 100 mg PO DAILY 10/08/16 traZODone [Desyrel] 100 mg PO DAILY 10/08/16 Review of Systems - Review of Systems All systems: reviewed and no additional remarkable complaints except - Psychiatric Psychiatric: Anxiety, Auditory Hallucinations, Irritability, Visual Hallucinations Mental Status Examination - Personal Presentation Personal Presentation: Looks stated age - Affect Affect: Constricted, Depressed - Motor Activity Motor Activity: Calm - Reliability in Providing Information Reliability in Providing Information: Good - Speech Speech: Organized - Mood Mood: Depressed, Anxious - Formal Thought Process Formal Thought Process: Hallucinations, Delusions - Hallucinations/Delusions Hallucinations: Visual, Auditory Delusions: Persecution - Obsessions/Compulsions Obsessions: No Compulsions: No - Cognitive Functions Orientation: Person, Place, Situation, Time Sensorium: Alert Attention/Concentration: Attentive Abstract Thinking: Vernon Estimate of Intelligence: Below average Judgement: Imparied, as evidence by: Poor judgement, Imparied, as evidence by: Lack of insight into illness - Risk Risk: Withdrawal, Diminished functioning - Strength & Assets Inventory Strength & Assets Inventory: Life experience - Limitations Limitations: Living alone DSM 5 DX - DSM 5 DSM 5 Diagnosis: Alcohol use disorder severe Alcohol withdrawal uncomplicated Opiate use disorder severe Cocaine use disorder severe Bipolar disorder mixed severe with psychotic features - Recommended/Plan of Treatment Treatment Recommendations and Plan of Treatment: Alcohol use disorder severe CBT Psychoeducation Supportive therapy, individual therapy Use IN for abstinence Alcohol withdrawal uncomplicated CBT Psychoeducation Supportive therapy, individual therapy Ativan when necessary Ativan taper taper Folic acid/thiamine/multivitamin Opiate use disorder severe CBT Psychoeducation Supportive therapy, individual therapy Methadone for withdrawal Use IN for abstinence Bipolar disorder mixed severe with psychotic features CBT Psychoeducation Supportive therapy, group therapy, individual therapy Haldol 5 mg by mouth twice a day Neurontin 100 mg by mouth 3 times a day Seroquel 200 mg by mouth daily at bedtime Trazodone 100 mg by mouth daily at bedtime Zoloft 100 mg daily - Smoking Cessation Smoking Cessation Initiated: No
[2016-10-09] MEDS: HYDROmorphone 1 mg/ml ISec IVP PRN (17:44)
[2016-10-10] MEDS: Vancomycin 1 gm/NS 200 ml 1 GM/200 ML BAG IVPB SCH ×2 (06:00→18:26)
[2016-10-10] MEDS: HYDROmorphone 1 mg/ml ISec IVP PRN ×2 (06:43→15:13)
[2016-10-10 07:07] LABS: BASO % 0.3 % (0.0-2.0); EOS # 0.5 K/uL (0.0-0.7); EOS % 4.6 % (0.0-4.0); HEMATOCRIT 35.9 % (35.0-51.0); LYMPH # 1.7 K/uL (1.0-4.3); LYMPH % 14.7 % (20.0-40.0); MEAN CELL VOLUME 90.4 fL (80.0-94.0); MEAN CORPUSCULAR HEMOGLOBIN 30.2 pg (27.0-31.0); MEAN CORPUSCULAR HGB CONC 33.4 g/dL (33.0-37.0); MEAN PLATELET VOLUME 7.1 fL (7.2-11.7); MONO # 1.2 K/uL (0.0-0.8); MONO % 10.1 % (0.0-10.0); RED CELL DISTRIBUTION WIDTH 12.6 % (11.5-14.5); WHITE BLOOD COUNT 11.5 K/uL (4.8-10.8)
[2016-10-10 07:35] LABS: CHLORIDE 102 mmol/L (98-107); POTASSIUM 3.6 mmol/L (3.6-5.2); SODIUM 138 mmol/L (132-148)
[2016-10-10 07:37] LABS: GFR AFRICAN-AMERICAN > 60
[2016-10-10 07:38] LABS: ALB/GLOB RATIO 0.9 (1.0-2.1); ALKALINE PHOSPHATASE 76 U/L (38-126); ALT/SGPT 16 U/L (21-72); AST/SGOT 15 U/L (17-59); BILIRUBIN,TOTAL 0.5 mg/dL (0.2-1.3); BLOOD UREA NITROGEN 15 mg/dL (9-20); CALCIUM 9.1 mg/dl (8.6-10.4); CARBON DIOXIDE 26 mmol/L (22-30); GLUCOSE,RANDOM 89 mg/dL (75-110); PHOSPHOROUS 4.4 mg/dL (2.5-4.5); TOTAL PROTEIN 6.7 g/dL (6.3-8.3)
--- NOTE | 2016-10-10 07:42 | CP.PCM.PN ---
<Michael Guillen - Last Filed: 10/10/16 21:34> Subjective - Date & Time of Evaluation Date of Evaluation: 10/10/16 Time of Evaluation: 07:00 - Subjective Subjective: Patient was examined at bedside. Patient has been npo since midnight. Patient states he wants more dilaudid even though he had received a dose 15 minutes prior. Patient complained of being hungry, I told him to of his upcoming debridement this afternoon and to not eat until then. Patient is having normal bowel movement and urinating normally. Patient denies chest pain, shortness of breath, vomiting, diarrhea, bleeding. Objective - Vital Signs/Intake and Output Vital Signs (last 24 hours): Temp Pulse Resp BP Pulse Ox 97.5 F L 69 20 101/63 98 10/10/16 00:00 10/10/16 00:00 10/10/16 00:00 10/10/16 00:00 10/10/16 00:00 Intake and Output: 10/10/16 10/10/16 06:59 18:59 Intake Total 800 Output Total 400 Balance 400 - Medications Medications: Current Medications Famotidine (Pepcid) 20 mg PO BID [facility] Last Admin: 10/09/16 17:34 Dose: 20 mg Heparin Sodium (Porcine) (Heparin) 5,000 units SC Q12 [facility] Last Admin: 10/09/16 21:46 Dose: Not Given Hydromorphone HCl (Dilaudid) 1 mg IVP Q6H PRN PRN Reason: Pain, severe (8-10) Last Admin: 10/10/16 06:43 Dose: 1 mg Folic Acid 1 mg/ Sodium (Chloride) 100.2 mls @ 60 mls/hr IV DAILY [facility] Last Admin: 10/09/16 11:30 Dose: 60 mls/hr Vancomycin/Sodium Chloride (Vancocin) 1 gm in 200 mls @ 133 mls/hr IVPB Q12H [facility] Stop: 10/14/16 06:01 Last Admin: 10/10/16 06:00 Dose: 133 mls/hr Ceftriaxone Sodium 1 gm/ (Sodium Chloride) 100 mls @ 100 mls/hr IVPB DAILY [facility] Last Admin: 10/09/16 18:55 Dose: 100 mls/hr Ketorolac Tromethamine (Toradol) 15 mg IVP Q6 PRN PRN Reason: Pain, severe (8-10) Last Admin: 10/09/16 16:34 Dose: 15 mg Lorazepam (Ativan) 1 mg IVP Q6H PRN PRN Reason: Anxiety Lorazepam (Ativan) 2 mg PO Q4 GLADYS PRN Reason: Taper Stop: 10/14/16 07:29 Last Admin: 10/10/16 04:00 Dose: Not Given Multivitamins (Hexavitamin) 1 tab PO DAILY [facility] Last Admin: 10/09/16 11:30 Dose: 1 tab Quetiapine Fumarate (Seroquel) 200 mg PO HS [facility] Last Admin: 10/09/16 21:43 Dose: 200 mg Sertraline HCl (Zoloft) 100 mg PO DAILY [facility] Last Admin: 10/09/16 11:29 Dose: 100 mg Trazodone HCl (Desyrel) 100 mg PO [facility] Last Admin: 10/09/16 21:44 Dose: 100 mg - Labs Labs: 10/10/16 06:35 10/09/16 06:29 PT 12.9 SECONDS (9.7-12.2) H 10/09/16 06:29 INR 1.2 10/09/16 06:29 APTT 30 SECONDS (21-34) 10/09/16 06:29 - Constitutional Appears: Non-toxic, No Acute Distress - Head Exam Head Exam: NORMAL INSPECTION - Eye Exam Eye Exam: EOMI, Normal appearance Pupil Exam: PERRL - ENT Exam ENT Exam: Mucous Membranes Moist - Neck Exam Neck Exam: Full ROM - Respiratory Exam Respiratory Exam: Clear to Ausculation Bilateral, NORMAL BREATHING PATTERN - Cardiovascular Exam Cardiovascular Exam: REGULAR RHYTHM, +S1, +S2 - GI/Abdominal Exam GI & Abdominal Exam: Soft, Normal Bowel Sounds - Rectal Exam Rectal Exam: Deferred - Extremities Exam Extremities Exam: Tenderness Additional comments: Erythema to both feet. Wound at base of great toe on R foot, covered in scab with dried blood. Raised abscess/wound on L foot draining dried blood. Tender to palpation, edema and erythema. ROM in tact but decreased due to pain. Sensation to pain, pulses present - Neurological Exam Neurological Exam: Alert, Awake, Oriented x3 - Psychiatric Exam Psychiatric exam: Normal Affect, Normal Mood - Skin Skin Exam: Abrasion, Normal Color, Warm Assessment and Plan - Assessment and Plan (Free Text) Assessment: Multiple foot wounds with cellulitis Likely abscess WBC trending down Vanc 1gm IVPB Q12 Rocephin 1 gm IV daily Debridement procedure today at 2pm with Dr. Cisco Peck to see him in AM, possible 2nd round of debridement foot Xray [10/08]: No acute fracture or bone destruction EKG [10/08]: normal sinus rhythm, prolonged qt chest xray [10/08]: no active disease f/u echo to rule out endocarditis - f/u blood cultures dilaudid 1mg IV q6 prn for pain Polysubstance abuse UDS positive for benzos and PCP Psych consulted, help appreciated Alcohol Use disorder CIWA score = 4 seizure/aspiration precautions MV/thiamine/folic acid Monitor for signs of withdrawal, Hx of withdrawal seizures Ativan taper Bipolar disorder? Psych consulted help appreciated Seroquel 200mg PO HS Trazodone 100mg PO HS Prophylaxis Pepcid 10mg PO BID Heparin 5000u sc q12 <Darshan Loza Jr. - Last Filed: 10/22/16 10:06> Objective - Vital Signs/Intake and Output Vital Signs (last 24 hours): Temp Pulse Resp BP Pulse Ox 97.5 F L 100 H 20 105/71 97 10/17/16 15:00 10/17/16 15:00 10/17/16 15:00 10/17/16 15:00 10/17/16 15:00 - Labs Labs: 10/17/16 07:51 10/17/16 07:51 PT 11.1 SECONDS (9.7-12.2) 10/17/16 07:51 INR 1.0 10/17/16 07:51 APTT 31 SECONDS (21-34) 10/17/16 07:51 Attending/Attestation - Attestation I have personally seen and examined this patient.: Yes I have fully participated in the care of the patient.: Yes I have reviewed all pertinent clinical information, including history, physical exam and plan: Yes Notes (Text): 10/22/16 10:06 Agree with resident note and findings
[2016-10-10] MEDS: Multiple Vitamins Tab PO SCH (10:32)
[2016-10-10] MEDS ORDERED: Lactated Ringer's 1,000 ML IV ONE (12:45)
[2016-10-10] MEDS ORDERED: Midazolam 2 MG/2 ML VIAL ONE (12:54)
[2016-10-10] MEDS ORDERED: Propofol 10 mg/ml Inj (20 ML) ONE (12:54)
[2016-10-10] MEDS ORDERED: HYDROmorphone 0.5 mg/0.5 ml ISec IVP PRN (13:54)
[2016-10-10] MEDS ORDERED: HYDROmorphone 0.5 mg/0.5 ml ISec ONE (14:03)
[2016-10-10] MEDS: Lactated Ringer's 1,000 ML IV SCH ×2 (14:58→21:00)
[2016-10-11] MEDS: Lactated Ringer's 1,000 ML IV SCH ×4 (03:55→23:30)
[2016-10-11] MEDS: Vancomycin 1 gm/NS 200 ml 1 GM/200 ML BAG IVPB SCH ×2 (05:50→17:35)
--- NOTE | 2016-10-11 06:35 | CARD ---
APPROVED REPORT EXAM: Two-dimensional and M-mode echocardiogram with Doppler and color Doppler. INDICATION COCAINE ABUSE, VEGETATIONS Surgery/Intervention CABG: M-Mode DIMENSIONS RVDd2.26 (2.1-3.2cm)Left Atrium (MM)3.61 (2.5-4.0cm) IVSd0.76 (0.7-1.1cm)Aortic Root2.82 (2.2-3.7cm) LVDd4.77 (4.0-5.6cm)Aortic Cusp Exc.2.00 (1.5-2.0cm) PWd0.82 (0.7-1.1cm)FS (%) 21 % LVDs3.75 (2.0-3.8cm)LVEF (%)43 (>50%) Mitral Valve MV E Fpdvfuvn63.3cm/sMV A Araiezlw99.5cm/sE/A ratio2.8 TDI E/Lateral E'0.0E/Medial E'0.0 Tricuspid Valve TR Peak [id number]/sTR Peak [id number] LEFT VENTRICLE The left ventricle is normal size. There is normal left ventricular wall thickness. Left ventricle systolic function is moderately impaired. The Ejection Fraction is 35-40%. No regional wall motion abnormalities noted. The left ventricular diastolic function is normal. No left ventricle thrombus noted on this study. There is no ventricular septal defect visualized. There is no left ventricular aneurysm. There is no mass noted in the left ventricle. RIGHT VENTRICLE The right ventricle is normal size. There is normal right ventricular wall thickness. The right ventricular systolic function is normal. ATRIA The left atrium size is normal. The right atrium size is normal. The interatrial septum is intact with no evidence for an atrial septal defect. AORTIC VALVE The aortic valve is normal in structure and function. No aortic regurgitation is present. There is no aortic valvular stenosis. There is no aortic valvular vegetation. MITRAL VALVE The mitral valve is normal in structure and function. There is no evidence of mitral valve prolapse. There is no mitral valve stenosis. Mitral regurgitation is mild. TRICUSPID VALVE The tricuspid valve is normal in structure and function. There is no tricuspid valve regurgitation noted. There is no tricuspid valve prolapse or vegetation. There is no tricuspid valve stenosis. PULMONIC VALVE The pulmonary valve is normal in structure and function. There is no pulmonic valvular regurgitation. There is no pulmonic valvular stenosis. GREAT VESSELS The aortic root is normal in size. The ascending aorta is normal in size. The pulmonary artery is normal. The IVC is normal in size and collapses >50% with inspiration. PERICARDIAL EFFUSION The pericardium appears normal. There is no pleural effusion. <Conclusion> The left ventricle is normal size. Left ventricle systolic function is moderately impaired. The Ejection Fraction is 35-40%. cannot rule out anterior mitral valve vegetation JASON suggested if clinically indicated
[2016-10-11 07:54] LABS: BASO % 0.4 % (0.0-2.0); EOS # 0.6 K/uL (0.0-0.7); HEMATOCRIT 35.2 % (35.0-51.0); LYMPH # 1.9 K/uL (1.0-4.3); LYMPH % 20.5 % (20.0-40.0); MEAN CELL VOLUME 90.4 fL (80.0-94.0); MEAN CORPUSCULAR HEMOGLOBIN 30.9 pg (27.0-31.0); MEAN CORPUSCULAR HGB CONC 34.1 g/dL (33.0-37.0); MEAN PLATELET VOLUME 7.2 fL (7.2-11.7); MONO # 0.9 K/uL (0.0-0.8); MONO % 9.7 % (0.0-10.0); NRBC % 0.1 % (0.0-2.0); RED CELL DISTRIBUTION WIDTH 12.5 % (11.5-14.5); WHITE BLOOD COUNT 9.3 K/uL (4.8-10.8)
[2016-10-11 08:06] LABS: CHLORIDE 98 mmol/L (98-107); POTASSIUM 3.6 mmol/L (3.6-5.2); SODIUM 136 mmol/L (132-148)
[2016-10-11 08:08] LABS: AST/SGOT 16 U/L (17-59); BILIRUBIN,TOTAL 0.4 mg/dL (0.2-1.3); CARBON DIOXIDE 29 mmol/L (22-30); GFR AFRICAN-AMERICAN > 60
[2016-10-11 08:09] LABS: ALB/GLOB RATIO 0.9 (1.0-2.1); ALKALINE PHOSPHATASE 82 U/L (38-126); ALT/SGPT 20 U/L (21-72); BLOOD UREA NITROGEN 11 mg/dL (9-20); CALCIUM 8.5 mg/dl (8.6-10.4); GLUCOSE,RANDOM 99 mg/dL (75-110); MAGNESIUM 1.6 mg/dL (1.6-2.3); PHOSPHOROUS 3.9 mg/dL (2.5-4.5); TOTAL PROTEIN 6.2 g/dL (6.3-8.3)
--- NOTE | 2016-10-11 09:40 | CP.PCM.PN ---
<Sonya Duff - Last Filed: 10/11/16 17:07> Subjective - Date & Time of Evaluation Date of Evaluation: 10/11/16 Time of Evaluation: 09:40 - Subjective Subjective: Medicine Progress Note- Dr. Loza Service Patient was seen and examined at beside in no acute distress. Patient was sleeping. He reports having diarrhea yesterday. Patient states he still has back pain. He also admits to having non-command hallucinations, but less than previously. Patient denies chest pain, palpitations, shortness of breath, abdominal pain, nausea, vomiting, and fevers. Objective - Vital Signs/Intake and Output Vital Signs (last 24 hours): Temp Pulse Resp BP Pulse Ox 98.0 F 60 20 111/66 98 10/11/16 08:14 10/11/16 08:14 10/11/16 08:14 10/11/16 08:14 10/11/16 08:14 Intake and Output: 10/11/16 10/11/16 06:59 18:59 Intake Total 3250 Balance 3250 - Medications Medications: Current Medications Famotidine (Pepcid) 20 mg PO BID [facility] Last Admin: 10/10/16 17:41 Dose: 20 mg Haloperidol (Haldol) 5 mg PO BID [facility] Last Admin: 10/10/16 17:41 Dose: 5 mg Heparin Sodium (Porcine) (Heparin) 5,000 units SC Q12 [facility] Last Admin: 10/10/16 22:33 Dose: 5,000 units Hydromorphone HCl (Dilaudid) 1 mg IVP Q6H PRN PRN Reason: Pain, severe (8-10) Last Admin: 10/10/16 15:13 Dose: 1 mg Folic Acid 1 mg/ Sodium (Chloride) 100.2 mls @ 60 mls/hr IV DAILY [facility] Last Admin: 10/10/16 11:46 Dose: 60 mls/hr Vancomycin/Sodium Chloride (Vancocin) 1 gm in 200 mls @ 133 mls/hr IVPB Q12H [facility] Stop: 10/14/16 06:01 Last Admin: 10/11/16 05:50 Dose: 133 mls/hr Ceftriaxone Sodium 1 gm/ (Sodium Chloride) 100 mls @ 100 mls/hr IVPB DAILY [facility] Last Admin: 10/11/16 09:11 Dose: 100 mls/hr Lactated Ringer's (Lactated Ringer's) 1,000 mls @ 150 mls/hr IV .Q6H40M [facility] Last Admin: 10/11/16 03:55 Dose: 150 mls/hr Lorazepam (Ativan) 1 mg IVP Q6H PRN PRN Reason: Anxiety Lorazepam (Ativan) 1 mg PO Q4 [facility] PRN Reason: Taper Stop: 10/14/16 07:29 Last Admin: 10/11/16 04:04 Dose: 2 mg Methadone HCl (Methadone) 5 mg PO DAILY [facility] Stop: 10/11/16 11:46 Last Admin: 10/10/16 11:45 Dose: 5 mg Multivitamins (Hexavitamin) 1 tab PO DAILY [facility] Last Admin: 10/10/16 10:32 Dose: 1 tab Quetiapine Fumarate (Seroquel) 200 mg PO HS [facility] Last Admin: 10/10/16 22:33 Dose: 200 mg Sertraline HCl (Zoloft) 100 mg PO DAILY [facility] Last Admin: 10/10/16 10:31 Dose: 100 mg Trazodone HCl (Desyrel) 100 mg PO [facility] Last Admin: 10/10/16 22:33 Dose: 100 mg - Labs Labs: 10/11/16 07:34 10/11/16 07:34 PT 12.9 SECONDS (9.7-12.2) H 10/09/16 06:29 INR 1.2 10/09/16 06:29 APTT 30 SECONDS (21-34) 10/09/16 06:29 - Constitutional Appears: No Acute Distress - Head Exam Head Exam: NORMAL INSPECTION, NORMOCEPHALIC - Eye Exam Eye Exam: EOMI, Normal appearance - ENT Exam ENT Exam: Mucous Membranes Moist - Neck Exam Neck Exam: Normal Inspection - Respiratory Exam Respiratory Exam: Clear to Ausculation Bilateral, NORMAL BREATHING PATTERN. absent: Wheezes - Cardiovascular Exam Cardiovascular Exam: REGULAR RHYTHM, +S1, +S2 - GI/Abdominal Exam GI & Abdominal Exam: Soft, Normal Bowel Sounds. absent: Tenderness - Extremities Exam Extremities Exam: Tenderness. absent: Calf Tenderness, Pedal Edema Additional comments: post-op tenderness - Neurological Exam Neurological Exam: Alert, Awake - Psychiatric Exam Psychiatric exam: Flat Affect, Normal Mood - Skin Skin Exam: Dry, Intact, Normal Color, Warm Additional comments: post-op abscess incision and drainage of left ankle and right foot Assessment and Plan (1) Abscess or cellulitis of foot Assessment & Plan: Abscess of left ankle and right foot WBC trending down Vanc 1gm IVPB Q12 Rocephin 1 gm IV daily Dilaudid 1mg IV q6 prn for pain Debridement procedure with Dr. Cisco Peck to see him in AM, possible 2nd round of debridement foot Xray [10/08]: No acute fracture or bone destruction EKG [10/08]: normal sinus rhythm, prolonged qt chest xray [10/08]: no active disease Echo- LV systolic function is moderately impaired; EF 35-40%; cannot rule out mitral valve vegetations, JASON recommended if clinically indicated Blood cultures- no growth after 48 hours Gram stain of Left ankle (10/11/16)- gram negative rods Status: Acute (2) Bipolar disorder Assessment & Plan: possible bipolar disorded Psych consulted help appreciated Seroquel 200mg PO HS Trazodone 100mg PO HS Librium Taper for alcohol withdrawal symptoms (hallucinations) Consult psychiatry- Dr. Farley, help appreciated. Status: Acute (3) Alcohol abuse Assessment & Plan: CIWA score = 4 seizure/aspiration precautions MV/thiamine/folic acid Monitor for signs of withdrawal, Hx of withdrawal seizures Ativan taper Librium Taper for alcohol withdrawal symptoms (hallucinations) Consult psychiatry- Dr. Farley, help appreciated. Status: Acute (4) Polysubstance abuse Assessment & Plan: UDS positive for benzos and PCP Psych consulted, help appreciated Status: Acute (5) Prophylactic measure Assessment & Plan: Pepcid 10mg PO BID Heparin 5000u sc q12 Status: Acute <Darshan Loza Jr. - Last Filed: 10/22/16 10:08> Objective - Vital Signs/Intake and Output Vital Signs (last 24 hours): Temp Pulse Resp BP Pulse Ox 97.5 F L 100 H 20 105/71 97 10/17/16 15:00 10/17/16 15:00 10/17/16 15:00 10/17/16 15:00 10/17/16 15:00 - Labs Labs: 10/17/16 07:51 10/17/16 07:51 PT 11.1 SECONDS (9.7-12.2) 10/17/16 07:51 INR 1.0 10/17/16 07:51 APTT 31 SECONDS (21-34) 10/17/16 07:51 Attending/Attestation - Attestation I have personally seen and examined this patient.: Yes I have fully participated in the care of the patient.: Yes I have reviewed all pertinent clinical information, including history, physical exam and plan: Yes Notes (Text): 10/22/16 10:07 Agree with resident note and findings
[2016-10-11] MEDS: Multiple Vitamins Tab PO SCH (09:53)
[2016-10-11] MEDS: HYDROmorphone 1 mg/ml ISec IVP PRN ×2 (11:23→18:35)
[2016-10-12] MEDS: Vancomycin 1 gm/NS 200 ml 1 GM/200 ML BAG IVPB SCH (05:17)
[2016-10-12] MEDS: Lactated Ringer's 1,000 ML IV SCH ×2 (06:03→22:27)
[2016-10-12 06:26] LABS: BASO # 0.1 K/uL (0.0-0.2); BASO % 0.7 % (0.0-2.0); EOS # 0.5 K/uL (0.0-0.7); EOS % 7.1 % (0.0-4.0); HEMATOCRIT 36.2 % (35.0-51.0); LYMPH # 1.6 K/uL (1.0-4.3); LYMPH % 22.2 % (20.0-40.0); MEAN CELL VOLUME 90.8 fL (80.0-94.0); MEAN CORPUSCULAR HEMOGLOBIN 30.7 pg (27.0-31.0); MEAN CORPUSCULAR HGB CONC 33.8 g/dL (33.0-37.0); MEAN PLATELET VOLUME 6.9 fL (7.2-11.7); MONO # 0.7 K/uL (0.0-0.8); MONO % 9.1 % (0.0-10.0); RED CELL DISTRIBUTION WIDTH 12.4 % (11.5-14.5); WHITE BLOOD COUNT 7.4 K/uL (4.8-10.8)
[2016-10-12 07:26] LABS: CHLORIDE 100 mmol/L (98-107); POTASSIUM 3.4 mmol/L (3.6-5.2); SODIUM 138 mmol/L (132-148)
[2016-10-12 07:28] LABS: ALB/GLOB RATIO 0.9 (1.0-2.1); BILIRUBIN,TOTAL 0.4 mg/dL (0.2-1.3); CARBON DIOXIDE 30 mmol/L (22-30); GFR AFRICAN-AMERICAN > 60; TOTAL PROTEIN 6.3 g/dL (6.3-8.3)
[2016-10-12 07:29] LABS: ALKALINE PHOSPHATASE 90 U/L (38-126); ALT/SGPT 15 U/L (21-72); AST/SGOT 17 U/L (17-59); BLOOD UREA NITROGEN 10 mg/dL (9-20); GLUCOSE,RANDOM 139 mg/dL (75-110); MAGNESIUM 1.8 mg/dL (1.6-2.3); PHOSPHOROUS 4.2 mg/dL (2.5-4.5)
--- NOTE | 2016-10-12 08:29 | CP.PCM.PN ---
<Michael Guillen - Last Filed: 10/12/16 08:27> Subjective - Date & Time of Evaluation Date of Evaluation: 10/12/16 Time of Evaluation: 06:30 - Subjective Subjective: Medicine Progress Note- Dr. Loza Service Patient was seen and examined at beside in no acute distress. Patient was sleeping. He reports having diarrhea. Patient states he still has back pain. He also admits to having non-command hallucinations, but less than previously. Patient denies chest pain, palpitations, shortness of breath, abdominal pain, nausea, vomiting, and fevers. Objective - Vital Signs/Intake and Output Vital Signs (last 24 hours): Temp Pulse Resp BP Pulse Ox 98.9 F 62 20 145/84 96 10/12/16 00:00 10/12/16 00:00 10/12/16 00:00 10/12/16 00:00 10/12/16 00:00 Intake and Output: 10/12/16 10/12/16 06:59 18:59 Intake Total 3630 Balance 3630 - Medications Medications: Current Medications Chlordiazepoxide (Librium) 25 mg PO Q6 [facility] PRN Reason: Taper Stop: 10/15/16 17:59 Last Admin: 10/12/16 05:17 Dose: 25 mg Famotidine (Pepcid) 20 mg PO BID [facility] Last Admin: 10/11/16 17:34 Dose: 20 mg Haloperidol (Haldol) 5 mg PO BID [facility] Last Admin: 10/11/16 17:34 Dose: 5 mg Heparin Sodium (Porcine) (Heparin) 5,000 units SC Q12 [facility] Last Admin: 10/11/16 21:15 Dose: 5,000 units Hydromorphone HCl (Dilaudid) 1 mg IVP Q6H PRN PRN Reason: Pain, severe (8-10) Last Admin: 10/11/16 18:35 Dose: 1 mg Folic Acid 1 mg/ Sodium (Chloride) 100.2 mls @ 60 mls/hr IV DAILY [facility] Last Admin: 10/11/16 10:31 Dose: 60 mls/hr Vancomycin/Sodium Chloride (Vancocin) 1 gm in 200 mls @ 133 mls/hr IVPB Q12H [facility] Stop: 10/14/16 06:01 Last Admin: 10/12/16 05:17 Dose: 133 mls/hr Ceftriaxone Sodium 1 gm/ (Sodium Chloride) 100 mls @ 100 mls/hr IVPB DAILY [facility] Last Admin: 10/11/16 09:11 Dose: 100 mls/hr Lactated Ringer's (Lactated Ringer's) 1,000 mls @ 150 mls/hr IV .Q6H40M [facility] Last Admin: 10/12/16 06:03 Dose: Not Given Lorazepam (Ativan) 1 mg IVP Q6H PRN PRN Reason: Anxiety Lorazepam (Ativan) 1 mg PO Q8 [facility] PRN Reason: Taper Stop: 10/14/16 07:29 Last Admin: 10/12/16 04:17 Dose: 1 mg Multivitamins (Hexavitamin) 1 tab PO DAILY [facility] Last Admin: 10/11/16 09:53 Dose: 1 tab Quetiapine Fumarate (Seroquel) 200 mg PO HS [facility] Last Admin: 10/11/16 21:14 Dose: 200 mg Sertraline HCl (Zoloft) 100 mg PO DAILY [facility] Last Admin: 10/11/16 09:55 Dose: 100 mg Thiamine HCl (Vitamin B1 Tab) 50 mg PO DAILY [facility] Last Admin: 10/11/16 17:34 Dose: 50 mg Trazodone HCl (Desyrel) 100 mg PO HS [facility] Last Admin: 10/11/16 21:15 Dose: 100 mg - Labs Labs: 10/12/16 06:18 10/12/16 06:18 PT 12.9 SECONDS (9.7-12.2) H 10/09/16 06:29 INR 1.2 10/09/16 06:29 APTT 30 SECONDS (21-34) 10/09/16 06:29 - Constitutional Appears: Well, Non-toxic, No Acute Distress - Head Exam Head Exam: NORMAL INSPECTION - Eye Exam Eye Exam: EOMI, Normal appearance Pupil Exam: PERRL - ENT Exam ENT Exam: Mucous Membranes Moist - Neck Exam Neck Exam: Normal Inspection - Respiratory Exam Respiratory Exam: Clear to Ausculation Bilateral, NORMAL BREATHING PATTERN - Cardiovascular Exam Cardiovascular Exam: REGULAR RHYTHM, +S1, +S2 - GI/Abdominal Exam GI & Abdominal Exam: Normal Bowel Sounds - Rectal Exam Rectal Exam: Deferred - Extremities Exam Extremities Exam: Calf Tenderness, Joint Swelling Additional comments: post-op abscess incision and drainage of left ankle and right foot - Neurological Exam Neurological Exam: Alert, Awake, Oriented x3 - Psychiatric Exam Psychiatric exam: Normal Affect, Normal Mood - Skin Skin Exam: Dry, Intact, Normal Color, Warm Assessment and Plan - Assessment and Plan (Free Text) Assessment: (1) Abscess or cellulitis of foot Assessment & Plan: Abscess of left ankle and right foot WBC trending down Vanc 1gm IVPB Q12 Rocephin 1 gm IV daily Dilaudid 1mg IV q6 prn for pain Debridement procedure with Dr. Cisco Peck to see him in AM, possible 2nd round of debridement foot Xray [10/08]: No acute fracture or bone destruction EKG [10/08]: normal sinus rhythm, prolonged qt chest xray [10/08]: no active disease Echo- LV systolic function is moderately impaired; EF 35-40%; cannot rule out mitral valve vegetations, JASON recommended if clinically indicated Blood cultures- no growth after 48 hours Gram stain of Left ankle (10/11/16)- gram negative rods Status: Acute (2) Bipolar disorder Assessment & Plan: possible bipolar disorded Psych consulted help appreciated Seroquel 200mg PO HS Trazodone 100mg PO HS Librium Taper for alcohol withdrawal symptoms (hallucinations) Consult psychiatry- Dr. Farley, help appreciated. Status: Acute (3) Alcohol abuse Assessment & Plan: CIWA score = 4 seizure/aspiration precautions MV/thiamine/folic acid Monitor for signs of withdrawal, Hx of withdrawal seizures Ativan taper Librium Taper for alcohol withdrawal symptoms (hallucinations) Consult psychiatry- Dr. Farley, help appreciated. Status: Acute (4) Polysubstance abuse Assessment & Plan: UDS positive for benzos and PCP Psych consulted, help appreciated Status: Acute (5) Prophylactic measure Assessment & Plan: Pepcid 10mg PO BID Heparin 5000u sc q12 Status: Acute <Darshan Loza Jr. - Last Filed: 10/22/16 10:10> Objective - Vital Signs/Intake and Output Vital Signs (last 24 hours): Temp Pulse Resp BP Pulse Ox 97.5 F L 100 H 20 105/71 97 10/17/16 15:00 10/17/16 15:00 10/17/16 15:00 10/17/16 15:00 10/17/16 15:00 - Labs Labs: 10/17/16 07:51 10/17/16 07:51 PT 11.1 SECONDS (9.7-12.2) 10/17/16 07:51 INR 1.0 10/17/16 07:51 APTT 31 SECONDS (21-34) 10/17/16 07:51 Attending/Attestation - Attestation I have personally seen and examined this patient.: Yes I have fully participated in the care of the patient.: Yes I have reviewed all pertinent clinical information, including history, physical exam and plan: Yes Notes (Text): 10/22/16 10:10 Resident note and findings reviewed and agree with
[2016-10-12] MEDS: Multiple Vitamins Tab PO SCH (10:56)
[2016-10-12] MEDS: HYDROmorphone 1 mg/ml ISec IVP PRN (11:04)
[2016-10-12] MEDS ORDERED: Potassium Chloride 20 mEq ER Tab PO ONE (11:20)
[2016-10-13] MEDS: Lactated Ringer's 1,000 ML IV SCH ×4 (02:00→17:01)
--- NOTE | 2016-10-13 02:44 | CP.PCM.PN ---
<Michael Guillen - Last Filed: 10/13/16 02:42> Subjective - Date & Time of Evaluation Date of Evaluation: 10/13/16 Time of Evaluation: 05:20 - Subjective Subjective: Medicine Progress Note- Dr. Loza Service Patient was seen and examined at beside in no acute distress. Patient was sleeping and awoken. He does not report any diarrhea today. Patient states he still has back pain. Patient was frustrated and wanted to know his disposition. Patient denies chest pain, palpitations, shortness of breath, abdominal pain, nausea, vomiting, and fevers. Objective - Vital Signs/Intake and Output Vital Signs (last 24 hours): Temp Pulse Resp BP Pulse Ox 97.6 F 66 20 134/88 98 10/13/16 00:00 10/13/16 00:00 10/13/16 00:00 10/13/16 00:00 10/13/16 00:00 Intake and Output: 10/12/16 10/13/16 18:59 06:59 Intake Total 1550 Balance 1550 - Medications Medications: Current Medications Chlordiazepoxide (Librium) 25 mg PO TID [facility] PRN Reason: Taper Stop: 10/15/16 17:59 Last Admin: 10/12/16 12:39 Dose: 25 mg Famotidine (Pepcid) 20 mg PO BID [facility] Last Admin: 10/12/16 10:55 Dose: 20 mg Haloperidol (Haldol) 5 mg PO BID [facility] Last Admin: 10/12/16 10:55 Dose: 5 mg Hydromorphone HCl (Dilaudid) 1 mg IVP Q6H PRN PRN Reason: Pain, severe (8-10) Last Admin: 10/12/16 11:04 Dose: 1 mg Folic Acid 1 mg/ Sodium (Chloride) 100.2 mls @ 60 mls/hr IV DAILY [facility] Last Admin: 10/12/16 09:50 Dose: 60 mls/hr Vancomycin/Sodium Chloride (Vancocin) 1 gm in 200 mls @ 133 mls/hr IVPB Q12H [facility] Stop: 10/14/16 06:01 Last Admin: 10/12/16 05:17 Dose: 133 mls/hr Ceftriaxone Sodium 1 gm/ (Sodium Chloride) 100 mls @ 100 mls/hr IVPB DAILY [facility] Last Admin: 10/12/16 10:54 Dose: 100 mls/hr Lactated Ringer's (Lactated Ringer's) 1,000 mls @ 150 mls/hr IV .Q6H40M [facility] Last Admin: 10/12/16 22:27 Dose: 150 mls/hr Lorazepam (Ativan) 1 mg IVP Q6H PRN PRN Reason: Anxiety Lorazepam (Ativan) 1 mg PO Q8 [facility] PRN Reason: Taper Stop: 10/14/16 07:29 Last Admin: 10/12/16 22:26 Dose: 1 mg Multivitamins (Hexavitamin) 1 tab PO DAILY [facility] Last Admin: 10/12/16 10:56 Dose: 1 tab Quetiapine Fumarate (Seroquel) 200 mg PO [facility] Last Admin: 10/12/16 22:26 Dose: 200 mg Sertraline HCl (Zoloft) 100 mg PO DAILY [facility] Last Admin: 10/12/16 10:55 Dose: 100 mg Thiamine HCl (Vitamin B1 Tab) 50 mg PO DAILY [facility] Last Admin: 10/12/16 10:55 Dose: 50 mg Trazodone HCl (Desyrel) 100 mg PO [facility] Last Admin: 10/12/16 22:26 Dose: 100 mg - Labs Labs: 10/12/16 06:18 10/12/16 06:18 PT 12.9 SECONDS (9.7-12.2) H 10/09/16 06:29 INR 1.2 10/09/16 06:29 APTT 30 SECONDS (21-34) 10/09/16 06:29 - Constitutional Appears: Well, No Acute Distress - Head Exam Head Exam: NORMAL INSPECTION - Eye Exam Eye Exam: Normal appearance - ENT Exam ENT Exam: Mucous Membranes Moist, Normal Exam - Neck Exam Neck Exam: Full ROM - Respiratory Exam Respiratory Exam: Clear to Ausculation Bilateral, NORMAL BREATHING PATTERN - Cardiovascular Exam Cardiovascular Exam: REGULAR RHYTHM, +S1, +S2. absent: Murmur - GI/Abdominal Exam GI & Abdominal Exam: Soft, Normal Bowel Sounds - Rectal Exam Rectal Exam: Deferred - Extremities Exam Extremities Exam: Tenderness - Neurological Exam Neurological Exam: Alert, Awake, Oriented x3 - Psychiatric Exam Psychiatric exam: Normal Affect, Normal Mood - Skin Skin Exam: Intact Assessment and Plan - Assessment and Plan (Free Text) Assessment: (1) Abscess or cellulitis of foot Assessment & Plan: Abscess of left ankle and right foot WBC trending down, wnl Vanc 1gm IVPB Q12 Rocephin 1 gm IV daily Wound culture positive for enterobacter, klebsiella will cont current abx Dilaudid 1mg IV q6 prn for pain Debridement procedure with Dr. Peck 2nd round of debridement on [10/11], possibly another foot Xray [10/08]: No acute fracture or bone destruction EKG [10/08]: normal sinus rhythm, prolonged qt chest xray [10/08]: no active disease Echo- LV systolic function is moderately impaired; EF 35-40%; cannot rule out mitral valve vegetations, JASON recommended if clinically indicated Blood cultures- no growth after 48 hours Gram stain of Left ankle (10/11/16)- gram negative rods Status: Acute (2) Bipolar disorder Assessment & Plan: possible bipolar disorder Psych consulted help appreciated Seroquel 200mg PO HS Trazodone 100mg PO HS Lib[facility] Taper for alcohol withdrawal symptoms (hallucinations) Consult psychiatry- Dr. Farley, help appreciated. Status: Acute (3) Alcohol abuse Assessment & Plan: CIWA score = 4 seizure/aspiration precautions MV/thiamine/folic acid Monitor for signs of withdrawal, Hx of withdrawal seizures Ativan taper Librium Taper for alcohol withdrawal symptoms (hallucinations) Consult psychiatry- Dr. Farley, help appreciated. Status: Acute (4) Polysubstance abuse Assessment & Plan: UDS positive for benzos and PCP Psych consulted, help appreciated Status: Acute (5) Prophylactic measure Assessment & Plan: Pepcid 10mg PO BID Heparin 5000u sc q12 Regular diet Status: Acute <Darshan Loza Jr. - Last Filed: 10/22/16 10:32> Objective - Vital Signs/Intake and Output Vital Signs (last 24 hours): Temp Pulse Resp BP Pulse Ox 97.5 F L 100 H 20 105/71 97 10/17/16 15:00 10/17/16 15:00 10/17/16 15:00 10/17/16 15:00 10/17/16 15:00 - Labs Labs: 10/17/16 07:51 10/17/16 07:51 PT 11.1 SECONDS (9.7-12.2) 10/17/16 07:51 INR 1.0 10/17/16 07:51 APTT 31 SECONDS (21-34) 10/17/16 07:51 Attending/Attestation - Attestation I have personally seen and examined this patient.: Yes I have fully participated in the care of the patient.: Yes I have reviewed all pertinent clinical information, including history, physical exam and plan: Yes Notes (Text): 10/22/16 10:32 Agree with resident note and findings
[2016-10-13] MEDS: Vancomycin 1 gm/NS 200 ml 1 GM/200 ML BAG IVPB SCH ×2 (05:45→18:18)
[2016-10-13 07:25] LABS: BASO % 0.6 % (0.0-2.0); EOS # 0.4 K/uL (0.0-0.7); EOS % 5.5 % (0.0-4.0); HEMATOCRIT 35.9 % (35.0-51.0); LYMPH # 1.5 K/uL (1.0-4.3); LYMPH % 19.1 % (20.0-40.0); MEAN CELL VOLUME 90.4 fL (80.0-94.0); MEAN CORPUSCULAR HEMOGLOBIN 30.6 pg (27.0-31.0); MEAN CORPUSCULAR HGB CONC 33.8 g/dL (33.0-37.0); MEAN PLATELET VOLUME 6.9 fL (7.2-11.7); MONO # 0.8 K/uL (0.0-0.8); MONO % 9.9 % (0.0-10.0); RED CELL DISTRIBUTION WIDTH 12.3 % (11.5-14.5)
[2016-10-13 08:33] LABS: CHLORIDE 101 mmol/L (98-107); POTASSIUM 3.9 mmol/L (3.6-5.2); SODIUM 138 mmol/L (132-148)
[2016-10-13 08:35] LABS: ALB/GLOB RATIO 0.9 (1.0-2.1); ALKALINE PHOSPHATASE 90 U/L (38-126); AST/SGOT 19 U/L (17-59); BILIRUBIN,TOTAL 0.4 mg/dL (0.2-1.3); CARBON DIOXIDE 29 mmol/L (22-30); GFR AFRICAN-AMERICAN > 60; TOTAL PROTEIN 6.3 g/dL (6.3-8.3)
[2016-10-13 08:36] LABS: ALT/SGPT 17 U/L (21-72); BLOOD UREA NITROGEN 10 mg/dL (9-20); CALCIUM 9.1 mg/dl (8.6-10.4); GLUCOSE,RANDOM 97 mg/dL (75-110); MAGNESIUM 1.6 mg/dL (1.6-2.3); PHOSPHOROUS 4.3 mg/dL (2.5-4.5)
[2016-10-13] MEDS: Multiple Vitamins Tab PO SCH (11:10)
[2016-10-13] MEDS: HYDROmorphone 1 mg/ml ISec IVP PRN ×2 (13:22→19:24)
[2016-10-14] MEDS: Lactated Ringer's 1,000 ML IV SCH (02:08)
[2016-10-14] MEDS: HYDROmorphone 1 mg/ml ISec IVP PRN ×4 (02:11→22:06)
[2016-10-14] MEDS: Vancomycin 1 gm/NS 200 ml 1 GM/200 ML BAG IVPB SCH (05:17)
[2016-10-14 06:22] LABS: BASO % 0.7 % (0.0-2.0); EOS # 0.4 K/uL (0.0-0.7); HEMATOCRIT 36.3 % (35.0-51.0); LYMPH # 1.7 K/uL (1.0-4.3); LYMPH % 24.5 % (20.0-40.0); MEAN CELL VOLUME 90.5 fL (80.0-94.0); MEAN CORPUSCULAR HEMOGLOBIN 30.2 pg (27.0-31.0); MEAN CORPUSCULAR HGB CONC 33.4 g/dL (33.0-37.0); MONO # 0.8 K/uL (0.0-0.8); MONO % 11.3 % (0.0-10.0); RED CELL DISTRIBUTION WIDTH 12.1 % (11.5-14.5); WHITE BLOOD COUNT 7.1 K/uL (4.8-10.8)
[2016-10-14 06:33] LABS: CHLORIDE 97 mmol/L (98-107); SODIUM 136 mmol/L (132-148)
[2016-10-14 06:34] LABS: POTASSIUM 3.4 mmol/L (3.6-5.2)
[2016-10-14 06:36] LABS: ALKALINE PHOSPHATASE 84 U/L (38-126); ALT/SGPT 18 U/L (21-72); AST/SGOT 16 U/L (17-59); BILIRUBIN,TOTAL 0.4 mg/dL (0.2-1.3); BLOOD UREA NITROGEN 11 mg/dL (9-20); CARBON DIOXIDE 30 mmol/L (22-30); GFR AFRICAN-AMERICAN > 60; GLUCOSE,RANDOM 96 mg/dL (75-110); TOTAL PROTEIN 6.2 g/dL (6.3-8.3)
[2016-10-14 06:37] LABS: MAGNESIUM 1.5 mg/dL (1.6-2.3); PHOSPHOROUS 5.2 mg/dL (2.5-4.5)
[2016-10-14] MEDS: Potassium Chloride 20 mEq ER Tab PO SCH (09:43)
[2016-10-14] MEDS: Multiple Vitamins Tab PO SCH (09:43)
--- NOTE | 2016-10-14 19:13 | CP.PCM.PN ---
<Ashlee Turner - Last Filed: 10/14/16 19:11> Subjective - Date & Time of Evaluation Date of Evaluation: 10/14/16 Time of Evaluation: 07:00 - Subjective Subjective: Medicine Progress Note- Dr. Loza Service Patient was seen and examined at beside in no acute distress. Patient says feet are hurting him some. Patient denies chest pain, palpitations, shortness of breath, abdominal pain, nausea, vomiting, and fevers. Objective - Vital Signs/Intake and Output Vital Signs (last 24 hours): Temp Pulse Resp BP Pulse Ox 97.8 F 63 20 132/81 95 10/14/16 16:02 10/14/16 16:02 10/14/16 16:02 10/14/16 16:02 10/14/16 16:02 Intake and Output: 10/14/16 10/15/16 18:59 06:59 Intake Total 1535 Balance 1535 - Medications Medications: Current Medications Chlordiazepoxide (Librium) 25 mg PO DAILY [facility] PRN Reason: Taper Stop: 10/15/16 17:59 Last Admin: 10/14/16 09:43 Dose: 25 mg Famotidine (Pepcid) 20 mg PO BID [facility] Last Admin: 10/14/16 17:56 Dose: 20 mg Haloperidol (Haldol) 5 mg PO BID [facility] Last Admin: 10/14/16 17:55 Dose: 5 mg Heparin Sodium (Porcine) (Heparin) 5,000 units IV Q12 [facility] Hydromorphone HCl (Dilaudid) 1 mg IVP Q6H PRN PRN Reason: Pain, severe (8-10) Last Admin: 10/14/16 16:01 Dose: 1 mg Folic Acid 1 mg/ Sodium (Chloride) 100.2 mls @ 60 mls/hr IV DAILY [facility] Last Admin: 10/14/16 10:56 Dose: 60 mls/hr Ceftriaxone Sodium 1 gm/ (Sodium Chloride) 100 mls @ 100 mls/hr IVPB DAILY [facility] Last Admin: 10/14/16 09:44 Dose: 100 mls/hr Lorazepam (Ativan) 1 mg IVP Q6H PRN PRN Reason: Anxiety Multivitamins (Hexavitamin) 1 tab PO DAILY [facility] Last Admin: 10/14/16 09:43 Dose: 1 tab Potassium Chloride (K-Dur 20 Meq Er Tab) 20 meq PO DAILY [facility] Last Admin: 10/14/16 09:43 Dose: 20 meq Quetiapine Fumarate (Seroquel) 200 mg PO HS [facility] Last Admin: 10/13/16 21:32 Dose: 200 mg Sertraline HCl (Zoloft) 100 mg PO DAILY [facility] Last Admin: 10/14/16 09:45 Dose: 100 mg Thiamine HCl (Vitamin B1 Tab) 50 mg PO DAILY [facility] Trazodone HCl (Desyrel) 100 mg PO HS [facility] Last Admin: 10/13/16 21:32 Dose: 100 mg - Labs Labs: 10/14/16 06:00 10/14/16 06:00 PT 12.9 SECONDS (9.7-12.2) H 10/09/16 06:29 INR 1.2 10/09/16 06:29 APTT 30 SECONDS (21-34) 10/09/16 06:29 - Constitutional Appears: Well, Non-toxic, No Acute Distress - Head Exam Head Exam: ATRAUMATIC, NORMAL INSPECTION, NORMOCEPHALIC - Eye Exam Eye Exam: EOMI, Normal appearance, PERRL - ENT Exam ENT Exam: Mucous Membranes Moist, Normal Exam - Neck Exam Neck Exam: Full ROM, Normal Inspection. absent: Lymphadenopathy - Respiratory Exam Respiratory Exam: Clear to Ausculation Bilateral, NORMAL BREATHING PATTERN. absent: Rales, Rhonchi, Wheezes, Respiratory Distress, Stridor - Cardiovascular Exam Cardiovascular Exam: REGULAR RHYTHM, RRR, +S1, +S2. absent: Murmur - GI/Abdominal Exam GI & Abdominal Exam: Soft, Normal Bowel Sounds. absent: Tenderness - Extremities Exam Extremities Exam: Full ROM Additional comments: dressings clean, dry, intact - Back Exam Back Exam: Full ROM, NORMAL INSPECTION - Neurological Exam Neurological Exam: Alert, Awake, Oriented x3 - Psychiatric Exam Psychiatric exam: Normal Affect, Normal Mood - Skin Skin Exam: Intact, Normal Color, Warm Assessment and Plan - Assessment and Plan (Free Text) Assessment: (1) Abscess or cellulitis of foot Assessment & Plan: Abscess of left ankle and right foot WBC trending down Vanc 1gm IVPB Q12 Rocephin 1 gm IV daily Dilaudid 1mg IV q6 prn for pain Debridement procedure with Dr. Cisco Peck to see him in AM, possible 2nd round of debridement foot Xray [10/08]: No acute fracture or bone destruction EKG [10/08]: normal sinus rhythm, prolonged qt chest xray [10/08]: no active disease Echo- LV systolic function is moderately impaired; EF 35-40%; cannot rule out mitral valve vegetations, JASON recommended if clinically indicated Blood cultures- no growth after 48 hours Gram stain of Left ankle (10/11/16)- gram negative rods Status: Acute (2) Bipolar disorder Assessment & Plan: possible bipolar disorded Psych consulted help appreciated Seroquel 200mg PO HS Trazodone 100mg PO HS [facility] Taper for alcohol withdrawal symptoms (hallucinations) Consult psychiatry- Dr. Farley, help appreciated. Status: Acute (3) Alcohol abuse Assessment & Plan: CIWA score = 4 seizure/aspiration precautions MV/thiamine/folic acid Monitor for signs of withdrawal, Hx of withdrawal seizures Ativan taper Librium Taper for alcohol withdrawal symptoms (hallucinations) Psychiatry saw patient on 10/09 (Dr. Mello) Status: Acute (4) Polysubstance abuse Assessment & Plan: UDS positive for benzos and PCP Psych consulted, help appreciated (Dr. Mello saw patient on 10/09) Status: Acute (5) Prophylactic measure Assessment & Plan: Pepcid 10mg PO BID Heparin 5000u sc q12 Status: Acute <Darshan Loza Jr. - Last Filed: 10/22/16 10:29> Objective - Vital Signs/Intake and Output Vital Signs (last 24 hours): Temp Pulse Resp BP Pulse Ox 97.5 F L 100 H 20 105/71 97 10/17/16 15:00 10/17/16 15:00 10/17/16 15:00 10/17/16 15:00 10/17/16 15:00 - Labs Labs: 10/17/16 07:51 10/17/16 07:51 PT 11.1 SECONDS (9.7-12.2) 10/17/16 07:51 INR 1.0 10/17/16 07:51 APTT 31 SECONDS (21-34) 10/17/16 07:51 Attending/Attestation - Attestation I have personally seen and examined this patient.: Yes I have fully participated in the care of the patient.: Yes I have reviewed all pertinent clinical information, including history, physical exam and plan: Yes Notes (Text): 10/22/16 10:29 Agree with resident note and findings
[2016-10-15 09:17] LABS: BASO # 0.1 K/uL (0.0-0.2); BASO % 0.8 % (0.0-2.0); EOS # 0.4 K/uL (0.0-0.7); EOS % 5.9 % (0.0-4.0); HEMATOCRIT 39.6 % (35.0-51.0); LYMPH # 1.7 K/uL (1.0-4.3); LYMPH % 23.3 % (20.0-40.0); MEAN CELL VOLUME 90.5 fL (80.0-94.0); MEAN CORPUSCULAR HEMOGLOBIN 29.9 pg (27.0-31.0); MEAN CORPUSCULAR HGB CONC 33.1 g/dL (33.0-37.0); MONO # 0.4 K/uL (0.0-0.8); MONO % 5.2 % (0.0-10.0); NRBC % 0.1 % (0.0-2.0); RED CELL DISTRIBUTION WIDTH 12.6 % (11.5-14.5); WHITE BLOOD COUNT 7.1 K/uL (4.8-10.8)
[2016-10-15] MEDS: Multiple Vitamins Tab PO SCH (09:30)
[2016-10-15] MEDS: Potassium Chloride 20 mEq ER Tab PO SCH (09:30)
[2016-10-15 09:39] LABS: CHLORIDE 100 mmol/L (98-107)
[2016-10-15 09:40] LABS: POTASSIUM 3.6 mmol/L (3.6-5.2); SODIUM 138 mmol/L (132-148)
[2016-10-15] MEDS: HYDROmorphone 1 mg/ml ISec IVP PRN ×3 (09:41→22:40)
[2016-10-15 09:42] LABS: ALKALINE PHOSPHATASE 94 U/L (38-126); AST/SGOT 31 U/L (17-59); BILIRUBIN,TOTAL 0.4 mg/dL (0.2-1.3); BLOOD UREA NITROGEN 14 mg/dL (9-20); CARBON DIOXIDE 28 mmol/L (22-30); GFR AFRICAN-AMERICAN > 60; GLUCOSE,RANDOM 131 mg/dL (75-110); PHOSPHOROUS 4.9 mg/dL (2.5-4.5); TOTAL PROTEIN 6.9 g/dL (6.3-8.3)
[2016-10-15 09:43] LABS: ALT/SGPT 25 U/L (21-72); CALCIUM 9.7 mg/dl (8.6-10.4); MAGNESIUM 1.7 mg/dL (1.6-2.3)
--- NOTE | 2016-10-15 20:52 | CP.PCM.PN ---
<Michael Guillen - Last Filed: 10/15/16 20:49> Subjective - Date & Time of Evaluation Date of Evaluation: 10/15/16 Time of Evaluation: 15:00 - Subjective Subjective: Medicine Progress Note- Dr. Loza Service Patient was seen and examined at beside in no acute distress. Patient c/o of mild pain in his feet b/l. Patient is comfortable otherwise. Patient denies chest pain, palpitations, shortness of breath, abdominal pain, nausea, vomiting , and fevers. Objective - Vital Signs/Intake and Output Vital Signs (last 24 hours): Temp Pulse Resp BP Pulse Ox 97.8 F 70 20 123/80 98 10/15/16 15:00 10/15/16 15:00 10/15/16 15:00 10/15/16 15:00 10/15/16 15:00 Intake and Output: 10/15/16 10/16/16 18:59 06:59 Intake Total 500 Balance 500 - Medications Medications: Current Medications Famotidine (Pepcid) 20 mg PO BID [facility] Last Admin: 10/15/16 18:17 Dose: 20 mg Haloperidol (Haldol) 5 mg PO BID [facility] Last Admin: 10/15/16 09:32 Dose: 5 mg Heparin Sodium (Porcine) (Heparin) 5,000 units IV Q12 [facility] Last Admin: 10/15/16 09:31 Dose: 5,000 units Hydromorphone HCl (Dilaudid) 1 mg IVP Q6H PRN PRN Reason: Pain, severe (8-10) Last Admin: 10/15/16 16:25 Dose: 1 mg Folic Acid 1 mg/ Sodium (Chloride) 100.2 mls @ 60 mls/hr IV DAILY [facility] Last Admin: 10/15/16 09:38 Dose: 60 mls/hr Ceftriaxone Sodium 1 gm/ (Sodium Chloride) 100 mls @ 100 mls/hr IVPB DAILY [facility] Last Admin: 10/15/16 09:37 Dose: 100 mls/hr Lorazepam (Ativan) 1 mg IVP Q6H PRN PRN Reason: Anxiety Multivitamins (Hexavitamin) 1 tab PO DAILY [facility] Last Admin: 10/15/16 09:30 Dose: 1 tab Potassium Chloride (K-Dur 20 Meq Er Tab) 20 meq PO DAILY [facility] Last Admin: 10/15/16 09:30 Dose: 20 meq Quetiapine Fumarate (Seroquel) [address] [facility] Last Admin: 10/14/16 22:11 Dose: 200 mg Sertraline HCl (Zoloft) 100 mg PO DAILY [facility] Last Admin: 10/15/16 09:32 Dose: 100 mg Thiamine HCl (Vitamin B1 Tab) 50 mg PO DAILY [facility] Last Admin: 10/15/16 09:32 Dose: 50 mg Trazodone HCl (Desyrel) [address] [facility] Last Admin: 10/14/16 22:10 Dose: 100 mg - Labs Labs: 10/15/16 09:07 10/15/16 09:07 PT 12.9 SECONDS (9.7-12.2) H 10/09/16 06:29 INR 1.2 10/09/16 06:29 APTT 30 SECONDS (21-34) 10/09/16 06:29 - Constitutional Appears: Well - Head Exam Head Exam: ATRAUMATIC, NORMAL INSPECTION, NORMOCEPHALIC - Eye Exam Eye Exam: EOMI, Normal appearance, PERRL - ENT Exam ENT Exam: Mucous Membranes Moist, Normal Exam - Neck Exam Neck Exam: Full ROM, Normal Inspection. absent: Lymphadenopathy - Respiratory Exam Respiratory Exam: Clear to Ausculation Bilateral, NORMAL BREATHING PATTERN - Cardiovascular Exam Cardiovascular Exam: REGULAR RHYTHM, +S1, +S2. absent: Murmur - GI/Abdominal Exam GI & Abdominal Exam: Soft, Normal Bowel Sounds. absent: Tenderness - Rectal Exam Rectal Exam: Deferred - Extremities Exam Additional comments: feet covered in gauze b/l. dressing c/d/i. - Neurological Exam Neurological Exam: Alert, Awake, Oriented x3 - Psychiatric Exam Psychiatric exam: Normal Affect, Normal Mood - Skin Skin Exam: Dry, Intact, Normal Color, Warm Assessment and Plan - Assessment and Plan (Free Text) Assessment: (1) Abscess or cellulitis of foot Assessment & Plan: Abscess of left ankle and right foot WBC trending down Vanc 1gm IVPB Q12 Rocephin 1 gm IV daily Dilaudid 1mg IV q6 prn for pain Debridement procedure with Dr. Cisco Peck to see him in AM, possible 2nd round of debridement foot Xray [10/08]: No acute fracture or bone destruction EKG [10/08]: normal sinus rhythm, prolonged qt chest xray [10/08]: no active disease Echo- LV systolic function is moderately impaired; EF 35-40%; cannot rule out mitral valve vegetations, JASON recommended if clinically indicated Blood cultures- no growth after 48 hours Gram stain of Left ankle (10/11/16)- gram negative rods Status: Acute (2) Bipolar disorder Assessment & Plan: possible bipolar disorded Psych consulted help appreciated Seroquel 200mg PO HS Trazodone 100mg PO HS [facility] Taper for alcohol withdrawal symptoms (hallucinations) Consult psychiatry- Dr. Farley, help appreciated. Status: Acute (3) Alcohol abuse Assessment & Plan: CIWA score = 4 seizure/aspiration precautions MV/thiamine/folic acid Monitor for signs of withdrawal, Hx of withdrawal seizures Ativan taper Librium Taper for alcohol withdrawal symptoms (hallucinations) Psychiatry saw patient on 10/09 (Dr. Mello) Status: Acute (4) Polysubstance abuse Assessment & Plan: UDS positive for benzos and PCP Psych consulted, help appreciated (Dr. Mello saw patient on 10/09) Status: Acute (5) Prophylactic measure Assessment & Plan: Pepcid 10mg PO BID Heparin 5000u sc q12 Status: Acute <Darshan Loza Jr. - Last Filed: 10/22/16 10:31> Objective - Vital Signs/Intake and Output Vital Signs (last 24 hours): Temp Pulse Resp BP Pulse Ox 97.5 F L 100 H 20 105/71 97 10/17/16 15:00 10/17/16 15:00 10/17/16 15:00 10/17/16 15:00 10/17/16 15:00 - Labs Labs: 10/17/16 07:51 10/17/16 07:51 PT 11.1 SECONDS (9.7-12.2) 10/17/16 07:51 INR 1.0 10/17/16 07:51 APTT 31 SECONDS (21-34) 10/17/16 07:51 Attending/Attestation - Attestation I have personally seen and examined this patient.: Yes I have fully participated in the care of the patient.: Yes I have reviewed all pertinent clinical information, including history, physical exam and plan: Yes Notes (Text): 10/22/16 10:31 Agree with resident note and findings
[2016-10-16 07:23] LABS: BASO % 0.7 % (0.0-2.0); EOS # 0.4 K/uL (0.0-0.7); EOS % 6.3 % (0.0-4.0); HEMATOCRIT 38.6 % (35.0-51.0); LYMPH # 1.9 K/uL (1.0-4.3); LYMPH % 29.1 % (20.0-40.0); MEAN CELL VOLUME 90.3 fL (80.0-94.0); MEAN CORPUSCULAR HEMOGLOBIN 30.7 pg (27.0-31.0); MEAN PLATELET VOLUME 6.9 fL (7.2-11.7); MONO # 0.7 K/uL (0.0-0.8); MONO % 11.1 % (0.0-10.0); NRBC % 0.1 % (0.0-2.0); RED CELL DISTRIBUTION WIDTH 12.7 % (11.5-14.5); WHITE BLOOD COUNT 6.5 K/uL (4.8-10.8)
[2016-10-16 07:32] LABS: CHLORIDE 99 mmol/L (98-107); SODIUM 138 mmol/L (132-148)
[2016-10-16 07:33] LABS: POTASSIUM 4.2 mmol/L (3.6-5.2)
[2016-10-16 07:34] LABS: GFR AFRICAN-AMERICAN > 60
[2016-10-16 07:35] LABS: ALKALINE PHOSPHATASE 92 U/L (38-126); ALT/SGPT 34 U/L (21-72); AST/SGOT 38 U/L (17-59); BILIRUBIN,TOTAL 0.5 mg/dL (0.2-1.3); BLOOD UREA NITROGEN 20 mg/dL (9-20); CARBON DIOXIDE 30 mmol/L (22-30); GLUCOSE,RANDOM 93 mg/dL (75-110); PHOSPHOROUS 5.3 mg/dL (2.5-4.5)
[2016-10-16 07:36] LABS: CALCIUM 9.8 mg/dl (8.6-10.4); MAGNESIUM 1.8 mg/dL (1.6-2.3)
[2016-10-16] MEDS: Multiple Vitamins Tab PO SCH (09:26)
[2016-10-16] MEDS: Potassium Chloride 20 mEq ER Tab PO SCH (09:26)
[2016-10-16] MEDS: HYDROmorphone 1 mg/ml ISec IVP PRN ×3 (09:31→22:45)
--- NOTE | 2016-10-16 15:16 | CP.PCM.PN ---
<Ashlee Turner - Last Filed: 10/16/16 15:13> Subjective - Date & Time of Evaluation Date of Evaluation: 10/16/16 Time of Evaluation: 08:00 - Subjective Subjective: PGY1- Medicine Note- Dr. Loza's Service Patient seen and observed at bedside and in no acute distress. Patient denies shortness of breath, chest pain, abdominal pain, nausea, vomiting, diarrhea, constipation. Patient's feet have some pain. Patient to go to surgery with Dr. Peck tomorrow. Objective - Vital Signs/Intake and Output Vital Signs (last 24 hours): Temp Pulse Resp BP Pulse Ox 96.7 F L 56 L 20 132/74 98 10/16/16 07:00 10/16/16 07:00 10/16/16 07:00 10/16/16 07:00 10/16/16 07:00 Intake and Output: 10/16/16 10/16/16 06:59 18:59 Intake Total 400 930 Balance 400 930 - Medications Medications: Current Medications Famotidine (Pepcid) 20 mg PO BID [facility] Last Admin: 10/16/16 09:27 Dose: 20 mg Haloperidol (Haldol) 5 mg PO BID [facility] Last Admin: 10/16/16 09:25 Dose: 5 mg Heparin Sodium (Porcine) (Heparin) 5,000 units IV Q12 [facility] Last Admin: 10/16/16 13:44 Dose: 5,000 units Folic Acid 1 mg/ Sodium (Chloride) 100.2 mls @ 60 mls/hr IV DAILY [facility] Last Admin: 10/16/16 09:18 Dose: 60 mls/hr Ceftriaxone Sodium 1 gm/ (Sodium Chloride) 100 mls @ 100 mls/hr IVPB DAILY [facility] Last Admin: 10/16/16 10:30 Dose: 100 mls/hr Multivitamins (Hexavitamin) 1 tab PO DAILY [facility] Last Admin: 10/16/16 09:26 Dose: 1 tab Potassium Chloride (K-Dur 20 Meq Er Tab) 20 meq PO DAILY [facility] Last Admin: 10/16/16 09:26 Dose: 20 meq Quetiapine Fumarate (Seroquel) 200 mg PO HS [facility] Last Admin: 10/15/16 21:44 Dose: 200 mg Sertraline HCl (Zoloft) 100 mg PO DAILY [facility] Last Admin: 10/16/16 09:27 Dose: 100 mg Thiamine HCl (Vitamin B1 Tab) 50 mg PO DAILY [facility] Last Admin: 10/16/16 09:27 Dose: 50 mg Trazodone HCl (Desyrel) 100 mg PO HS [facility] Last Admin: 10/15/16 21:44 Dose: 100 mg - Labs Labs: 10/16/16 07:03 10/16/16 07:03 PT 12.9 SECONDS (9.7-12.2) H 10/09/16 06:29 INR 1.2 10/09/16 06:29 APTT 30 SECONDS (21-34) 10/09/16 06:29 - Constitutional Appears: Well, Non-toxic, No Acute Distress - Head Exam Head Exam: ATRAUMATIC, NORMAL INSPECTION, NORMOCEPHALIC - Eye Exam Eye Exam: EOMI, Normal appearance, PERRL - Neck Exam Neck Exam: Full ROM, Normal Inspection. absent: Lymphadenopathy - Respiratory Exam Respiratory Exam: Clear to Ausculation Bilateral, NORMAL BREATHING PATTERN. absent: Rales, Rhonchi, Wheezes, Respiratory Distress, Stridor - Cardiovascular Exam Cardiovascular Exam: REGULAR RHYTHM, RRR, +S1, +S2. absent: Gallop, Rubs, Murmur - GI/Abdominal Exam GI & Abdominal Exam: Soft, Normal Bowel Sounds. absent: Firm, Guarding, Rigid, Tenderness - Rectal Exam Rectal Exam: NORMAL INSPECTION - Extremities Exam Extremities Exam: Tenderness. absent: Normal Inspection, Pedal Edema Additional comments: dressings bilaterally dry, intact, clean - Back Exam Back Exam: NORMAL INSPECTION. absent: rash noted - Neurological Exam Neurological Exam: Alert, Awake, Oriented x3 - Psychiatric Exam Psychiatric exam: Normal Affect, Normal Mood - Skin Skin Exam: Intact, Normal Color, Warm Assessment and Plan - Assessment and Plan (Free Text) Assessment: (1) Abscess or cellulitis of foot Assessment & Plan: 10/16/16: Patient to go for surgery with Dr. Peck tomorrow Abscess of left ankle and right foot WBC trending down Vanc 1gm IVPB Q12 Rocephin 1 gm IV daily Dilaudid 1mg IV q6 prn for pain Debridement procedure with Dr. Cisco Peck to see him in AM, possible 2nd round of debridement foot Xray [10/08]: No acute fracture or bone destruction EKG [10/08]: normal sinus rhythm, prolonged qt chest xray [10/08]: no active disease Echo- LV systolic function is moderately impaired; EF 35-40%; cannot rule out mitral valve vegetations, JASON recommended if clinically indicated Blood cultures- no growth after 48 hours Gram stain of Left ankle (10/11/16)- gram negative rods Status: Acute (2) Bipolar disorder Assessment & Plan: possible bipolar disorded Psych consulted help appreciated Seroquel 200mg PO HS Trazodone 100mg PO HS Librium Taper for alcohol withdrawal symptoms (hallucinations) Consult psychiatry- Dr. Farley, help appreciated. Status: Acute (3) Alcohol abuse Assessment & Plan: CIWA score = 4 seizure/aspiration precautions MV/thiamine/folic acid Monitor for signs of withdrawal, Hx of withdrawal seizures Ativan taper Librium Taper for alcohol withdrawal symptoms (hallucinations) Psychiatry saw patient on 10/09 (Dr. Mello) Status: Acute (4) Polysubstance abuse Assessment & Plan: UDS positive for benzos and PCP Psych consulted, help appreciated (Dr. Mello saw patient on 10/09) Status: Acute (5) Prophylactic measure Assessment & Plan: Pepcid 10mg PO BID Heparin 5000u sc q12 Status: Acute <Darshan Loza Jr. - Last Filed: 10/22/16 10:33> Objective - Vital Signs/Intake and Output Vital Signs (last 24 hours): Temp Pulse Resp BP Pulse Ox 97.5 F L 100 H 20 105/71 97 10/17/16 15:00 10/17/16 15:00 10/17/16 15:00 10/17/16 15:00 10/17/16 15:00 - Labs Labs: 10/17/16 07:51 10/17/16 07:51 PT 11.1 SECONDS (9.7-12.2) 10/17/16 07:51 INR 1.0 10/17/16 07:51 APTT 31 SECONDS (21-34) 10/17/16 07:51 Attending/Attestation - Attestation I have personally seen and examined this patient.: Yes I have fully participated in the care of the patient.: Yes I have reviewed all pertinent clinical information, including history, physical exam and plan: Yes Notes (Text): 10/22/16 10:32 Agree with resident note and findings
[2016-10-16] MEDS ORDERED: HYDROmorphone 1 mg/ml ISec IVP SCH (18:00)
[2016-10-17 07:57] LABS: BASO # 0.1 K/uL (0.0-0.2); EOS # 0.4 K/uL (0.0-0.7); EOS % 6.2 % (0.0-4.0); HEMATOCRIT 39.6 % (35.0-51.0); LYMPH # 1.8 K/uL (1.0-4.3); LYMPH % 28.8 % (20.0-40.0); MEAN CELL VOLUME 90.7 fL (80.0-94.0); MEAN CORPUSCULAR HEMOGLOBIN 30.3 pg (27.0-31.0); MEAN CORPUSCULAR HGB CONC 33.4 g/dL (33.0-37.0); MONO # 0.6 K/uL (0.0-0.8); MONO % 9.4 % (0.0-10.0); NRBC % 0.1 % (0.0-2.0); RED CELL DISTRIBUTION WIDTH 12.9 % (11.5-14.5); WHITE BLOOD COUNT 6.2 K/uL (4.8-10.8)
[2016-10-17 08:07] LABS: CHLORIDE 98 mmol/L (98-107); POTASSIUM 4.4 mmol/L (3.6-5.2); SODIUM 138 mmol/L (132-148)
[2016-10-17 08:09] LABS: AST/SGOT 36 U/L (17-59); BILIRUBIN,TOTAL 0.5 mg/dL (0.2-1.3); CARBON DIOXIDE 30 mmol/L (22-30); GFR AFRICAN-AMERICAN > 60; TOTAL PROTEIN 7.3 g/dL (6.3-8.3)
[2016-10-17 08:10] LABS: ALKALINE PHOSPHATASE 92 U/L (38-126); ALT/SGPT 31 U/L (21-72); BLOOD UREA NITROGEN 23 mg/dL (9-20); GLUCOSE,RANDOM 88 mg/dL (75-110); MAGNESIUM 1.9 mg/dL (1.6-2.3); PHOSPHOROUS 5.7 mg/dL (2.5-4.5)
--- NOTE | 2016-10-17 09:47 | CP.PCM.PN ---
<Ashlee Turner - Last Filed: 10/17/16 09:44> Subjective - Date & Time of Evaluation Date of Evaluation: 10/17/16 Time of Evaluation: 08:00 - Subjective Subjective: PGY1- Medicine Note- Dr. Loza's Service Patient seen and examined at bedside today and in no acute distress. Patient was woken up and denies shortness of breath, chest pain, abdominal pain, nausea , vomiting, constipation, diarrhea. Patient to go for surgery today. Objective - Vital Signs/Intake and Output Vital Signs (last 24 hours): Temp Pulse Resp BP Pulse Ox 97.6 F 60 20 122/76 98 10/17/16 09:16 10/17/16 09:16 10/17/16 09:16 10/17/16 09:16 10/17/16 09:16 Intake and Output: 10/17/16 10/17/16 06:59 18:59 Intake Total 340 Balance 340 - Medications Medications: Current Medications Famotidine (Pepcid) 20 mg PO BID [facility] Last Admin: 10/16/16 18:22 Dose: 20 mg Haloperidol (Haldol) 5 mg PO BID [facility] Last Admin: 10/16/16 18:22 Dose: 5 mg Heparin Sodium (Porcine) (Heparin) 5,000 units IV Q12 [facility] Last Admin: 10/16/16 22:44 Dose: 5,000 units Hydromorphone HCl (Dilaudid) 1 mg IVP Q6 PRN PRN Reason: Pain, moderate (4-7) Last Admin: 10/16/16 22:45 Dose: 1 mg Folic Acid 1 mg/ Sodium (Chloride) 100.2 mls @ 60 mls/hr IV DAILY [facility] Last Admin: 10/16/16 09:18 Dose: 60 mls/hr Ceftriaxone Sodium 1 gm/ (Sodium Chloride) 100 mls @ 100 mls/hr IVPB DAILY [facility] Last Admin: 10/16/16 10:30 Dose: 100 mls/hr Multivitamins (Hexavitamin) 1 tab PO DAILY [facility] Last Admin: 10/16/16 09:26 Dose: 1 tab Potassium Chloride (K-Dur 20 Meq Er Tab) 20 meq PO DAILY [facility] Last Admin: 10/16/16 09:26 Dose: 20 meq Quetiapine Fumarate (Seroquel) 200 mg PO HS [facility] Last Admin: 10/16/16 22:44 Dose: 200 mg Sertraline HCl (Zoloft) 100 mg PO DAILY [facility] Last Admin: 10/16/16 09:27 Dose: 100 mg Thiamine HCl (Vitamin B1 Tab) 50 mg PO DAILY [facility] Last Admin: 10/16/16 09:27 Dose: 50 mg Trazodone HCl (Desyrel) 100 mg PO HS [facility] Last Admin: 10/16/16 22:44 Dose: 100 mg - Labs Labs: 10/17/16 07:51 10/17/16 07:51 PT 11.1 SECONDS (9.7-12.2) 10/17/16 07:51 INR 1.0 10/17/16 07:51 APTT 31 SECONDS (21-34) 10/17/16 07:51 - Constitutional Appears: Well, Non-toxic, No Acute Distress - Head Exam Head Exam: ATRAUMATIC, NORMAL INSPECTION, NORMOCEPHALIC - Eye Exam Eye Exam: EOMI, Normal appearance, PERRL - ENT Exam ENT Exam: Mucous Membranes Moist - Neck Exam Neck Exam: Full ROM, Normal Inspection. absent: Lymphadenopathy - Respiratory Exam Respiratory Exam: Clear to Ausculation Bilateral, NORMAL BREATHING PATTERN. absent: Rales, Rhonchi, Wheezes, Respiratory Distress, Stridor - Cardiovascular Exam Cardiovascular Exam: REGULAR RHYTHM, RRR, +S1, +S2. absent: Gallop, Rubs, Murmur - GI/Abdominal Exam GI & Abdominal Exam: Soft, Normal Bowel Sounds. absent: Firm, Guarding, Rigid - Extremities Exam Extremities Exam: Full ROM, Tenderness. absent: Normal Inspection, Pedal Edema Additional comments: mild tenderness both feet in clean, dry, intact dressings - Back Exam Back Exam: NORMAL INSPECTION. absent: rash noted - Psychiatric Exam Psychiatric exam: Normal Affect, Normal Mood - Skin Skin Exam: Normal Color, Warm Assessment and Plan - Assessment and Plan (Free Text) Assessment: Assessment: (1) Abscess or cellulitis of foot Assessment & Plan: 10/16/16: Patient to go for surgery with Dr. Peck tomorrow Abscess of left ankle and right foot WBC trending down Vanc 1gm IVPB Q12 Rocephin 1 gm IV daily Dilaudid 1mg IV q6 prn for pain Debridement procedure with Dr. Cisco Peck to see him in AM, possible 2nd round of debridement foot Xray [10/08]: No acute fracture or bone destruction EKG [10/08]: normal sinus rhythm, prolonged qt chest xray [10/08]: no active disease Echo- LV systolic function is moderately impaired; EF 35-40%; cannot rule out mitral valve vegetations, JASON recommended if clinically indicated Blood cultures- no growth after 48 hours Gram stain of Left ankle (10/11/16)- gram negative rods Status: Acute (2) Bipolar disorder Assessment & Plan: possible bipolar disorded Psych consulted help appreciated Seroquel 200mg PO HS Trazodone 100mg PO HS Librium Taper for alcohol withdrawal symptoms (hallucinations) Consult psychiatry- Dr. Farley, help appreciated. Status: Acute (3) Alcohol abuse Assessment & Plan: CIWA score = 4 seizure/aspiration precautions MV/thiamine/folic acid Monitor for signs of withdrawal, Hx of withdrawal seizures Ativan taper Librium Taper for alcohol withdrawal symptoms (hallucinations) Psychiatry saw patient on 10/09 (Dr. Mello) Status: Acute (4) Polysubstance abuse Assessment & Plan: UDS positive for benzos and PCP Psych consulted, help appreciated (Dr. Mello saw patient on 10/09) Status: Acute (5) Prophylactic measure Assessment & Plan: Pepcid 10mg PO BID Heparin 5000u sc q12 Status: Acute <Darshan Loza Jr. - Last Filed: 10/22/16 10:48> Objective - Vital Signs/Intake and Output Vital Signs (last 24 hours): Temp Pulse Resp BP Pulse Ox 97.5 F L 100 H 20 105/71 97 10/17/16 15:00 10/17/16 15:00 10/17/16 15:00 10/17/16 15:00 10/17/16 15:00 - Labs Labs: 10/17/16 07:51 10/17/16 07:51 PT 11.1 SECONDS (9.7-12.2) 10/17/16 07:51 INR 1.0 10/17/16 07:51 APTT 31 SECONDS (21-34) 10/17/16 07:51 Attending/Attestation - Attestation I have personally seen and examined this patient.: Yes I have fully participated in the care of the patient.: Yes I have reviewed all pertinent clinical information, including history, physical exam and plan: Yes Notes (Text): 10/22/16 10:48 Agree with resident note and findings
[2016-10-17] MEDS: Potassium Chloride 20 mEq ER Tab PO SCH (10:23)
[2016-10-17] MEDS: Multiple Vitamins Tab PO SCH (10:23)
[2016-10-17] MEDS ORDERED: Midazolam 2 MG/2 ML VIAL ONE ×2 (13:34→13:47)
[2016-10-17] MEDS ORDERED: Propofol 10 mg/ml Inj (20 ML) ONE (13:34)
[2016-10-17] MEDS ORDERED: Etomidate 20 mg/10ml Inj IV ONE (13:36)
[2016-10-17] MEDS ORDERED: Lactated Ringer's 1,000 ML IV ONE (13:37)
[2016-10-17 16:03] VITALS: BP 105/71; PULSE 100; RESP 20; TEMP 97.5; O2SAT 97
[2016-10-17] MEDS: HYDROmorphone 1 mg/ml ISec IVP PRN (18:18)
--- NOTE | 2016-10-17 20:25 | CP.PCM.DIS ---
Provider - Provider Date of Admission: 10/08/16 18:15 Attending physician: Darshan Loza Jr, MD Consults: Dr. Peck (surgeon) Dr. Mello (psychiatrist) Time Spent in preparation of Discharge (in minutes): 45 Diagnosis - Discharge Diagnosis (1) Abscess or cellulitis of foot Status: Acute Comment: Continue wound care with santyl and take ciprofloxacin for 30 days (2) Bipolar disorder Status: Acute Comment: Continue medications Hospital Course - Lab Results Lab Results: Micro Results 10/17/16 14:12 Ankle - Left Gram Stain - Preliminary 10/17/16 14:11 Foot - Left Gram Stain - Preliminary 10/17/16 14:13 Foot - Right Gram Stain - Final 10/08/16 18:16 Blood Blood Culture - Final NO GROWTH AFTER 5 DAYS 10/08/16 18:16 Blood Gram Stain - Final TEST NOT PERFORMED 10/08/16 18:16 Blood Blood Culture - Final NO GROWTH AFTER 5 DAYS 10/08/16 18:16 Blood Gram Stain - Final TEST NOT PERFORMED 10/10/16 Unknown Foot - Left Gram Stain - Final 10/10/16 Unknown Foot - Left Wound Culture - Final Enterobacter Cloacae Klebsiella Pneumoniae 10/10/16 Unknown Ankle - Left Gram Stain - Final 10/10/16 Unknown Ankle - Left Wound Culture - Final Enterobacter Cloacae Ssp Cloac Klebsiella Pneumoniae Ssp Pneu Group F Streptococcus Most Recent Lab Values WBC 6.2 K/uL (4.8-10.8) 10/17/16 07:51 RBC 4.37 Mil/uL (4.40-5.90) L 10/17/16 07:51 Hgb 13.2 g/dL (12.0-18.0) 10/17/16 07:51 Hct 39.6 % (35.0-51.0) 10/17/16 07:51 MCV 90.7 fL (80.0-94.0) 10/17/16 07:51 MCH 30.3 pg (27.0-31.0) 10/17/16 07:51 MCHC 33.4 g/dL (33.0-37.0) 10/17/16 07:51 RDW 12.9 % (11.5-14.5) 10/17/16 07:51 Plt Count 377 K/uL (130-400) 10/17/16 07:51 MPV 7.0 fL (7.2-11.7) L 10/17/16 07:51 Neut % (Auto) 54.6 % (50.0-75.0) 10/17/16 07:51 Lymph % (Auto) 28.8 % (20.0-40.0) 10/17/16 07:51 [place] % (Auto) 9.4 % (0.0-10.0) 10/17/16 07:51 Eos % (Auto) 6.2 % (0.0-4.0) H 10/17/16 07:51 Baso % (Auto) 1.0 % (0.0-2.0) 10/17/16 07:51 Neut # 3.4 K/uL (1.8-7.0) 10/17/16 07:51 Lymph # 1.8 K/uL (1.0-4.3) 10/17/16 07:51 [place] # 0.6 K/uL (0.0-0.8) 10/17/16 07:51 Eos # 0.4 K/uL (0.0-0.7) 10/17/16 07:51 Baso # 0.1 K/uL (0.0-0.2) 10/17/16 07:51 PT 11.1 SECONDS (9.7-12.2) 10/17/16 07:51 INR 1.0 10/17/16 07:51 APTT 31 SECONDS (21-34) 10/17/16 07:51 Sodium 138 mmol/L (132-148) 10/17/16 07:51 Potassium 4.4 mmol/L (3.6-5.2) 10/17/16 07:51 Chloride 98 mmol/L (98-107) 10/17/16 07:51 Carbon Dioxide 30 mmol/L (22-30) 10/17/16 07:51 Anion Gap 14 (10-20) 10/17/16 07:51 BUN 23 mg/dL (9-20) H 10/17/16 07:51 Creatinine 0.9 MG/DL (0.8-1.5) 10/17/16 07:51 Est GFR ( Amer) > 60 10/17/16 07:51 Est GFR (Non-Af Amer) > 60 10/17/16 07:51 Random Glucose 88 mg/dL (75-110) 10/17/16 07:51 Calcium 10.0 mg/dl (8.6-10.4) 10/17/16 07:51 Phosphorus 5.7 mg/dL (2.5-4.5) H 10/17/16 07:51 Magnesium 1.9 mg/dL (1.6-2.3) 10/17/16 07:51 Total Bilirubin 0.5 mg/dL (0.2-1.3) 10/17/16 07:51 AST 36 U/L (17-59) 10/17/16 07:51 ALT 31 U/L (21-72) 10/17/16 07:51 Alkaline Phosphatase 92 U/L (38-126) 10/17/16 07:51 Total Protein 7.3 g/dL (6.3-8.3) 10/17/16 07:51 Albumin 3.7 g/dL (3.5-5.0) 10/17/16 07:51 Globulin 3.6 gm/dL (2.2-3.9) 10/17/16 07:51 Albumin/Globulin Ratio 1.0 (1.0-2.1) 10/17/16 07:51 Urine Opiates Screen Negative (NEGATIVE) 10/09/16 16:19 Urine Methadone Screen Negative (NEGATIVE) 10/09/16 16:19 Ur Barbiturates Screen Negative (NEGATIVE) 10/09/16 16:19 Ur Phencyclidine Scrn Positive (NEGATIVE) 10/09/16 16:19 Ur Amphetamines Screen Negative (NEGATIVE) 10/09/16 16:19 U Benzodiazepines Scrn Positive (NEGATIVE) 10/09/16 16:19 U Oth Cocaine Metabols Negative (NEGATIVE) 10/09/16 16:19 U Cannabinoids Screen Negative (NEGATIVE) 10/09/16 16:19 - Hospital Course Hospital Course: "CC: "Foot wounds" HPI: 35 year old male PMH significant for seizures (noncompliant), 12 yr hx + Cocaine abuse - last use 2 days prior to admission (IV), and last drink of vodka 2 days prior states that he has 3 wounds on his feet that started 3-4 days ago. He states these wounds are very tender and swollen. They are draining blood and pus like material. He states these wounds are at the same place that he was injecting IV drugs. He denied fever/chills. He denies past history of endocarditis. He stated that he felt a little weak but denied all other complaints. " In the ED, vancomycin 1 gram daily started. Chest xray showed no active disease. Foot xrays showed no foreign body and no acute fracture or bone destruction. EKG showed normal sinus rhythm. Patient admitted to the hospital for foot wounds with cellulitis. Echo showed ejection fraction of 35-40% and could not rule out anterior mitral valve vegetation. Patient was also started on Rocephin 1 gm daily. His CIWA score was 7 and seizure/ aspiration precautions were place. Patient put on thiamine, folic acid, and ativan taper. For bipolar disorder patient was given Seroquel 200 mg PO and Trazodone 100 mg PO. Urine drug screen positive for benzos and PCP. Dr. Mello saw the patient and made many psych recommendations. Patient taken for surgery by Dr. Peck on 10/11. Patient had an incision and drainage of osteomyelitis of left ankle with bone biopsy and drainage of abscess of left food and drainage or right first toe abscess. Blood cultures showed no growth after 48 hours. Gram stain of Left ankle (10/11/16) showed gram negative rods. On 10/17 Dr. Peck took patient to OR for redrainage of osteomylitis of left ankle, pulse irrigation of various wounds-- left ankle, left foot and right ankle. Patient ready to leave hospital and denies complaints. Patient was cleared for discharge as per Dr. Peck and Dr. Loza. Patient instructed to follow up at the [facility]. This is a summary of the hospital course. Please see chart for full details. Discharge Exam - Head Exam Head Exam: ATRAUMATIC, NORMAL INSPECTION, NORMOCEPHALIC - Eye Exam Eye Exam: EOMI, Normal appearance, PERRL - ENT Exam ENT Exam: Mucous Membranes Moist - Neck Exam Neck exam: Full Rom - Respiratory Exam Respiratory Exam: Clear to PA & Lateral, NORMAL BREATHING PATTERN, UNREMARKABLE. absent: Rales, Rhonchi, Wheezes, Respiratory Distress, Stridor - Cardiovascular Exam Cardiovascular Exam: RRR. absent: Systolic Murmur - GI/Abdominal Exam GI & Abdominal Exam: Normal Bowel Sounds. absent: Distended, Firm, Guarding - Extremities Exam Extremities exam: full ROM Additional comments: dressings intact, dry, clean bilaterally - Back Exam Back exam: NORMAL INSPECTION - Neurological Exam Neurological exam: Alert, Oriented x3 - Psychiatric Exam Psychiatric exam: Normal Affect, Normal Mood - Skin Skin Exam: Normal Color, Warm Discharge Plan - Discharge Medications Prescriptions: Ciprofloxacin [Cipro] 500 mg PO BID #60 tab Collagenase [Santyl] 90 gm EXT BID #1 tube - Follow Up Plan Condition: FAIR Disposition: HOME/ ROUTINE Instructions: Ciprofloxacin (By mouth), Collagenase (On the skin), Cellulitis ( DC), Abscess (GEN), Cellulitis (GEN) Additional Instructions: Patient stable for discharge as per Dr. Loza and Dr. Peck(surgery). Patient should resume home medications. Patient should additionally take the following: Ciprofloxacin 500 mg twice a day for 30 days use Santyl on wounds and apply a nickel thick amount twice a day. Patient should make an appointment and follow up with the [facility] within one week. Patient should return to ED immediately if symptoms return or worsen. Instructions discussed with patient who understood and agreed. Referrals: [facility] [Provider Group]
--- NOTE | 2016-10-24 15:41 | PCM.OP ---
Operative Report - Operative Report Date of Surgery/Procedure: 10/09/16 Time of Surgery/Procedure: 12:00 Surgeon: Onur Peck Anesthesia/Sedation: General Pre-Operative Diagnosis: multiple abscesses of the lower extremities Post-Operative Diagnosis: multiple abscesses of the lower extremities/ osteomyelitis of left ankle Indication for Surgery: 36 year old male who suffers from drug abuse presents with multiple abscess of lower extremities Operative Findings: In the lateral left ankle abscess not to be down to the bone , Osteomyelitis of left ankle, drainied. Biposy of bone was taken to confirm osteomyelitis. Procedure/Operation Description: 1. I&D osteomyelitis L ankle 2.Bone Biopsy L ankle 3. I&D deep abscess of L foot 4. I&D deep abscess of R foot and first toe. Pt was brought into OR placed on operating table. The both lower extremities were then prepped and draped in surgical fashion. I&D osteomyelitis L ankle. Pt was turned to medial L ankle where a large abscess was Incised and Drained, cultures were taken. The exposed bone and the osteomyelitis was drained using a scalpel. Bone Biopsy L ankle. After I&D of Medial Left ankle abscess a rongeur was used to conduct a biopsy of the bone of the Left ankle to confirm osteomyelitis. Pt was given saline solution. I&D deep abscess of R foot at the metacarpophalangeal joint. The attention was then turned to left foot where the abscess of the dorsum of the the left foot was incised and drained and cultured down to the tendon entire area was debrided trained and washed out with saline. I&D deep abscess of R foot and first toe. Right foot abscess was drained to. Irrigated with saline solution all the separate abscessed were packed with wet saline gauze and dressed sterile. Estimated Blood Loss: 40cc Complications: None Discharge & Condition: Stable
--- NOTE | 2016-10-25 12:14 | PCM.OP ---
Operative Report - Operative Report Date of Surgery/Procedure: 10/17/16 Time of Surgery/Procedure: 12:00 Surgeon: Rajesh Peck Anesthesia/Sedation: General anesthesia Pre-Operative Diagnosis: 1) osteomyelitis of the left ankle. 2)cellulitis and abscess of the left and right foot Post-Operative Diagnosis: 1) osteomyelitis of the left ankle. 2)cellulitis and abscess of the left and right foot Indication for Surgery: This is a 36 year old male, with a history of IV drug abuse, documented osteomyelitis of the left ankle Operative Findings: -The osteomyelitis was re-drained with an incision in the tibial aspect and culture. Separate bone biopsy was taken and sent for specimen using a rongeur. -Both abscesses were re-drained and any remaining collections were cultured. The wounds were dressed sterilely Procedure/Operation Description: Patient taken to the operating room, general anesthesia was administered, and both legs and feet were prepped and draped and turned to the first turn to the left ankle. The osteomyelitis was re-drained with an incision in the tibial aspect and culture. Separate bone biopsy was taken and sent for specimen using a rongeur. The wound was then debrided and post irrigated. Tender tissue ___ raised peripherally and a peripheral adjacent tissue transfer closure was performed using multiple layers of monocryl, subcuticular monocryl. The central portion of wound was left open and packed with wet saline gauze. Attention was then turned to both the right and left foot wounds which were both aggressively debrided and post irrigated. Bleeding was controlled using the bovie. Both abscesses were re-drained and any remaining collections were cultured. The wounds were dressed sterilely. Patient tolerated the procedure well. Estimated Blood Loss: 30 cc Drains: Both abscesses were re-drained and any remaining collections were cultured Complications: None Discharge & Condition: Stable
== END 2016-10-17 19:15 | disposition home or self-care (01) | DRG 263 ==
LOC: C.ER 17:03 → C.9E 18:15 → C.3T 10-09 06:41
PROVIDERS: ADMIT Internal Medicine; ATTEND Internal Medicine
PROC: 0H9MXZX Drainage of Right Foot Skin, External Approach, Diagnostic (ICD-10-PCS; 2016-10-09)
PROC: 0QBH0ZX Excision of Left Tibia, Open Approach, Diagnostic (ICD-10-PCS; 2016-10-09)
PROC: 0H9NXZX Drainage of Left Foot Skin, External Approach, Diagnostic (ICD-10-PCS; 2016-10-09)
PROC: 0HXNXZZ Transfer Left Foot Skin, External Approach (ICD-10-PCS; 2016-10-17)
PROC: 0QBH0ZX Excision of Left Tibia, Open Approach, Diagnostic (ICD-10-PCS; 2016-10-17)
PROC: 0H9NXZX Drainage of Left Foot Skin, External Approach, Diagnostic (ICD-10-PCS; 2016-10-17)
PROC: 0H9MXZX Drainage of Right Foot Skin, External Approach, Diagnostic (ICD-10-PCS; principal; 2016-10-17 12:00)
DX: L03.116 Cellulitis of left lower limb (principal); F14.10 Cocaine abuse, uncomplicated; F11.10 Opioid abuse, uncomplicated; F31.9 Bipolar disorder, unspecified; L03.115 Cellulitis of right lower limb; F41.9 Anxiety disorder, unspecified; Z95.1 Presence of aortocoronary bypass graft; F12.10 Cannabis abuse, uncomplicated; Z72.89 Other problems related to lifestyle; F17.210 Nicotine dependence, cigarettes, uncomplicated; Z91.14 Patient's other noncompliance with medication regimen